=== PATIENT | male | born 1960 | race Caucasian/White ===

== ENCOUNTER → 2019-12-09 13:00 | Outpatient (BNVA) | payer MEDICARE, MEDICAID, SELFPAY | PROVIDERS: Family Provider Nurse Practitioner; PCP Nurse Practitioner; Visit Provider Internal Medicine Cardiovascular Disease | DX: I10 Essential (primary) hypertension (principal); M79.89 Other specified soft tissue disorders; E78.5 Hyperlipidemia, unspecified; J44.9 Chronic obstructive pulmonary disease, unspecified; I25.10 Atherosclerotic heart disease of native coronary artery without angina pectoris | CPT/HCPCS: 80048; 80076; 83880 ==

== ENCOUNTER 2022-05-31 12:46 | Outpatient (CLI) | payer MEDICARE, MEDICAID, SELFPAY ==
--- NOTE | 2022-05-31 12:52 | CT_ITS ---
WS: [id number] LDCT LUNG CANCER SCREENING TECHNIQUE: Noncontrast CT of the chest with coronal and sagittal reformatted images. CLINICAL INFORMATION: NICOTINE DEPENDENCE,CIGARETTES COMPARISON: None. DLP: 80.79 mGy.cm DIvol: Mean CTDIvol: 1.60 (mGy) All CT scans at [facility] use at least one of these dose optimization techniques: automat ed exposure control; mA and/or kV adjustment per patient size (includes targeted exams where dose is matched to clinical indication); or iterative reconstruction. FINDINGS: Aortic calcification. Postoperative changes ACDF C6-C7. Mild aortic calcification. Mild cor onary calcification. No mediastinal or hilar lymphadenopathy. Calcified RIGHT hilar lymph nodes. No a xillary lymphadenopathy. Small esophageal hiatal hernia. Adrenal glands are normal. Normal noncontrast spleen. Small hazy opac ity RIGHT upper lobe measuring 4 mm. Hypertrophic changes thoracic spine with prominent protruding disc osteophyte complex at T8-T9 with i mpingement on the LEFT subarticular recess and mild to moderate central canal stenosis. Severe LEFT p roximal foraminal narrowing. This is unchanged from the prior lumbar spine MRI in 2018 CT/CT lung screening [id number] IMPRESSION: LUNG-RADS: 1-Negative FOLLOW UP: 12 Month: Continue annual screening with LDCT
== END 2022-05-31 12:47 | disposition home or self-care (01) ==
PROVIDERS: PCP Nurse Practitioner Family; Visit Provider Nurse Practitioner Family
DX: Z12.2 Encounter for screening for malignant neoplasm of respiratory organs (principal); F17.210 Nicotine dependence, cigarettes, uncomplicated
CPT/HCPCS: 71271

== ENCOUNTER 2022-11-08 15:26 | Inpatient (IN) | payer MEDICARE, MEDICAID, SELFPAY ==
[2022-11-08] VITALS (10 sets, daily range): BP systolic 130–150; BP diastolic 74–88; PULSE 104–120; RESP 18–40; TEMP 36.9–37.2; O2SAT 90–96; BMI 41.1
--- NOTE | 2022-11-08 15:32 | XR_ITS ---
WS: [id number] Exam: XR chest 1V portable [id number] Date/Time of Exam: 11/08/2022 3:38 PM Reason For Exam: dyspnea/cough Comparison 04/04/2019. There is infiltrate along the left heart border probably in the lingular segment of the left upper lo be. The right lung is clear. The lungs are fully inflated. No pleural effusions. Cardiomediastinal si lhouette is unremarkable. Fusion hardware in the lower C-spine. XR/XR chest 1V portable [id number] IMPRESSION: 1. Infiltrate along the left heart border suspicious for pneumonia. This is pro bably within the lingula.
[2022-11-08] MEDS: ipratropium-albuterol 3 mL Neb INHALATION ×2 (15:45→19:57)
[2022-11-08 16:29] LABS: Basophils % 0.3 %; Eosinophils % 0.1 %; Hematocrit 54.8 % (42.0-52.0); Hemoglobin 17.6 g/dL (11.7-16.6); Lymphocytes # 1.6 10^3/uL (0.8-4.8); Lymphocytes % 18.4 %; Mean Corpuscular HGB Conc 32.1 g/dL (30.0-36.0); Mean Corpuscular Hemoglobin 29.1 pg (28.0-34.0); Mean Corpuscular Volume 90.6 fl (80-94); Mean Platelet Volume 9.5 fL (7.4-10.4); Monocytes # 0.8 10^3/uL (0.2-0.9); Monocytes % 8.6 %; Nucleated Red Blood Cells % 0 %; Platelet Count 166 10^3/cmm (130-400); Red Blood Count 6.05 10^6/uL (4.1-5.3); Red Cell Distribution Width 15.2 % (12.1-15.1); White Blood Count 8.8 10^3/uL (4.0-10.0)
--- NOTE | 2022-11-08 16:57 | ED_ITS ---
HPI - SOB/Dyspnea General: Chief Complaint: Shortness of Breath/Dyspnea Stated Complaint: SOB Time Seen by Provider: 11/08/22 15:29 Source: patient Mode of arrival: ambulatory History of Present Illness: HPI Narrative: 62-year-old male presents emergency room with complaint of shortness of breath. He is normally on oxygen at home he has felt more short of breath last few days was little bit tachycardic as well. Has had a productive cough over the last 3 to 4 days. He has a history of COPD does continue to smoke. MD elicited complaint: shortness of breath and cough Pertinent past history: COPD Onset (ago): day(s) (4) Timing: constant Severity: mild Exacerbating factors: coughing Relieving factors: oxygen, rest and bronchodilators Known history of: COPD Associated symptoms: Reports chest congestion and cough; Deny abdominal pain, chest pain, diaphoresis, dizziness, extremity pain, fever(s), hemoptysis, lightheadedness, myalgias, nausea, orthopnea, palpitations, paresthesias, polydipsia, polyuria, rash, sense of impending doom, syncope or vomiting Treatment prior to arrival: oxygen Review of Systems Const: Denies: fever(s), chills, fatigue, malaise or diaphoresis ENMT: Denies: throat pain, ear or mastoid pain, nasal discharge or nasal congestion Card: Denies: chest pain, palpitations, lightheadedness, syncope or orthopnea Resp: Reports: dyspnea, productive cough and chest congestion; Denies: hemoptysis GI: Denies: abdominal pain, nausea or vomiting : Denies: flank pain, dysuria, urinary frequency or urinary urgency Musc: Denies: extremity pain Skin/Breast: Denies: rash or pruritus Neuro: Denies: dizziness Endo: Denies: polyuria or polydipsia PFSH ED PFSH: Medical History ASHD (arteriosclerotic heart disease) Bradycardia COPD (chronic obstructive pulmonary disease) Dyslipidemia (high LDL; low HDL) Essential hypertension GERD (gastroesophageal reflux disease) Heart murmur History of left heart catheterization Leg swelling Non-ST elevation (NSTEMI) myocardial infarction Sleep apnea Tobacco dependence Surgical History Hx of knee surgery Hx of neck surgery Hx of repair of left rotator cuff Family History Sister Diabetes Grandfather Diabetes Father Hypertension Cancer Mother Hypertension Sister Hypertension Brother Hypertension CAD (coronary artery disease) Social History Smoking and tobacco status: current some day smoker Alcohol intake: never Marital status: Current occupational status: employed Physical Exam Const: GENERAL APPEARANCE: cooperative and comfortable ORIENTATION/CONSCIOUSNESS: Yes awake, Yes oriented to person, Yes oriented to place and Yes oriented to time HENMT: COMMON NORMALS: normocephalic, atraumatic and hearing grossly normal bilaterally HEAD & SCALP: normocephalic and atraumatic Resp: COMMON NORMALS: normal respiratory effort, No retractions and No use of accessory muscles AUSCULTATION: rhonchi and wheezes Cardio: COMMON NORMALS: regular rhythm and No murmurs present (Cardio) RATE: tachycardic RHYTHM: regular rhythm GI: COMMON NORMALS: Soft to palpation and No hepatosplenomegaly present AUSCULTATION: Yes normoactive bowel sounds PALPATION: Yes Soft to palpation, No Tenderness to palpation present (GI), No Guarding due to palpation present (GI) and Yes No hepatosplenomegaly present Extremity: COMMON NORMALS: normal to inspection, capillary refill normal, no clubbing, cyanosis or edema, no calf tenderness and no pedal edema Neuro: SENSORIUM/ORIENTATION: Yes oriented to person, Yes oriented to place and Yes oriented to time Skin: COMMON NORMALS: no rashes or lesions noted GENERAL SKIN EXAM: no rashes or lesions noted Course 2 Vital Signs: Vital signs: Vital Signs Temperature 98.4 F 11/08/22 15:28 Pulse Rate 110 H 11/08/22 16:30 Respiratory Rate 22 H 11/08/22 16:30 Blood Pressure 150/87 11/08/22 16:30 Pulse Oximetry 90 11/08/22 16:30 Oxygen Delivery Me thod 11/08/22 16:30 Oxygen Flow Rate 4 11/08/22 16:30 MDM - SOB/Dyspnea Medical Decision Making Left lower lobe pneumonia with increased oxygen needs. His flu and COVID are negative will admit to hospital IV fluids antibiotics aggressive pulmonary toilet discussed Dr. Cho orders written Medical Records I reviewed the patient's medical records. Lab Data I reviewed the patient's lab results. 11/08/22 16:03 11/08/22 16:03 Labs/Radiology: Radiology Impressions Chest X-Ray 11/08/22 15:32 IMPRESSION: 1. Infiltrate along the left heart border suspicious for pneumonia. This is probably within the lingula. Laboratory Results WBC 8.8 10^3/uL (4.0-10.0) 11/08/22 16:03 RBC 6.05 10^6/uL (4.1-5.3) H 11/08/22 16:03 Hgb 17.6 g/dL (11.7-16.6) H 11/08/22 16:03 Hct 54.8 % (42.0-52.0) H 11/08/22 16:03 MCV 90.6 fl (80-94) 11/08/22 16:03 MCH 29.1 pg (28.0-34.0) 11/08/22 16:03 MCHC 32.1 g/dL (30.0-36.0) 11/08/22 16:03 RDW 15.2 % (12.1-15.1) H 11/08/22 16:03 Plt Count 166 10^3/cmm (130-400) 11/08/22 16:03 MPV 9.5 fL (7.4-10.4) 11/08/22 16:03 Neut % (Auto) 72.0 % 11/08/22 16:03 Lymph % (Auto) 18.4 % 11/08/22 16:03 [place] % (Auto) 8.6 % 11/08/22 16:03 Eos % (Auto) 0.1 % 11/08/22 16:03 Baso % (Auto) 0.3 % 11/08/22 16:03 Neut # (Auto) 6.30 10^3/uL (1.8-7.7) 11/08/22 16:03 Lymph # (Auto) 1.6 10^3/uL (0.8-4.8) 11/08/22 16:03 [place] # (Auto) 0.8 10^3/uL (0.2-0.9) 11/08/22 16:03 Eos # (Auto) 0.0 10^3/uL (0.0-0.8) 11/08/22 16:03 Baso # (Auto) 0.0 10^3/uL (0.0-0.1) 11/08/22 16:03 Nucleated RBC % (auto) 0 % 11/08/22 16:03 Nucleated RBCs # 0.0 /100WBC 11/08/22 16:03 Sodium 135 mmol/L (136-145) L 11/08/22 16:03 Potassium 4.4 mmol/L (3.5-5.1) 11/08/22 16:03 Chloride 98 mmol/L (98-107) 11/08/22 16:03 Carbon Dioxide 29 mmol/L (22-29) 11/08/22 16:03 Anion Gap 12.4 (5-19) 11/08/22 16:03 BUN 19 mg/dL (8-23) 11/08/22 16:03 Creatinine 1.4 mg/dL (0.7-1.2) H 11/08/22 16:03 GFR Calculation 51.4 mL/min (90-130) L 11/08/22 16:03 Glucose 109 mg/dL (65-115) 11/08/22 16:03 Calculated Osmolality 283 mOsm/kg (285-295) L 11/08/22 16:03 Calcium 9.5 mg/dL (8.5-10.5) 11/08/22 16:03 Total Bilirubin 0.6 mg/dL (0.15-1.2) 11/08/22 16:03 AST 35 U/L (0-40) 11/08/22 16:03 ALT 33 U/L (0-41) 11/08/22 16:03 Alkaline Phosphatase 61 U/L (40-130) 11/08/22 16:03 Total Protein 8.2 g/dL (6.6-8.7) 11/08/22 16:03 Albumin 4.2 g/dL (3.5-5.2) 11/08/22 16:03 Globulin 4.0 g/dL (1.3-4.6) 11/08/22 16:03 Nasal Influ A H1 2008 PCR Not detected (NOT DETECT) 11/08/22 15:43 Coronavirus 229E (PCR) Not detected (NOT DETECT) 11/08/22 15:43 Influenza A (H1) PCR Not detected (NOT DETECT) 11/08/22 15:43 Influenza A (H3) PCR Not detected (NOT DETECT) 11/08/22 15:43 Influenza Type A Ag negative (Negative) 11/08/22 16:20 Influenza Type A (PCR) Not detected (NOT DETECT) 11/08/22 15:43 Influenza Type B Ag negative (Negative) 11/08/22 16:20 Influenza Type B (PCR) Not detected (NOT DETECT) 11/08/22 15:43 RSV Type A (PCR) Detected (NOT DETECT) A 11/08/22 18:03 RSV Type B (PCR) Not detected (NOT DETECT) 11/08/22 18:03 SARS-CoV-2 (PCR) Not detected (NOT DETECT) 11/08/22 15:43 SARS-CoV-2 Ag (Rapid) negative (Negative) 11/08/22 16:20 Discharge Plan Discharge Patient Disposition: Placed in Observation Clinical Impression: Pneumonia, Acute exacerbation of chronic obstructive airways disease Coding Level of Care Code 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
[2022-11-08 17:04] LABS: Alanine Aminotransferase 33 U/L (0-41); Albumin Level 4.2 g/dL (3.5-5.2); Alkaline Phosphatase 61 U/L (40-130); Anion Gap 12.4 (5-19); Aspartate Amino Transferase 35 U/L (0-40); Blood Urea Nitrogen 19 mg/dL (8-23); Calcium 9.5 mg/dL (8.5-10.5); Carbon Dioxide 29 mmol/L (22-29); Chloride 98 mmol/L (98-107); Glomerular Filtration Rate 51.4 mL/min (90-130); Glucose 109 mg/dL (65-115); Osmolality Calculated 283 mOsm/kg (285-295); Potassium 4.4 mmol/L (3.5-5.1); Sodium 135 mmol/L (136-145); Total Bilirubin 0.6 mg/dL (0.15-1.2); Total Protein 8.2 g/dL (6.6-8.7)
[2022-11-08 17:35] LABS: SARS Covid-2 Antigen negative (Negative)
[2022-11-08 17:36] LABS: Influenza A by IFA negative (Negative); Influenza B by IFA negative (Negative)
[2022-11-08 17:47] LABS: Adenovirus Not Detected (NOT DETECT); Chlamydia Pneumoniae Not Detected (NOT DETECT); Coronavirus 229E,HKU1,NL63,OC4 Not Detected (NOT DETECT); Human Metapneumovirus Not Detected (NOT DETECT); Human Rhinovirus/Enterovirus Not Detected (NOT DETECT); Influenza A Not Detected (NOT DETECT); Influenza A H1 Not Detected (NOT DETECT); Influenza A H1-2009 Not Detected (NOT DETECT); Influenza A H3 Not Detected (NOT DETECT); Influenza B Not Detected (NOT DETECT); Mycoplasma Pneumoniae Not Detected (NOT DETECT); Parainfluenza Virus Type 1 Not Detected (NOT DETECT); Parainfluenza Virus Type 2 Not Detected (NOT DETECT); Parainfluenza Virus Type 3 Not Detected (NOT DETECT); Parainfluenza Virus Type 4 Not Detected (NOT DETECT); Respiratory Syncytial Virus A Detected (NOT DETECT); Respiratory Syncytial Virus B Not Detected (NOT DETECT); SARS-COV-2 Not Detected (NOT DETECT)
[2022-11-08 18:04] LABS: Results from GEN
[2022-11-08 18:04] LABS: Respiratory Syncytial Virus A Detected (NOT DETECT); Respiratory Syncytial Virus B Not Detected (NOT DETECT); Results from GEN
[2022-11-08] MEDS: levofloxacin-dextrose 5 % 750 MG/150 ML PREMIX 100 MG IV (18:05)
--- NOTE | 2022-11-08 18:25 | P.HP_ITS ---
Providers/Chief Complaint Primary Care Provider: Kristan Martin NP Chief Complaint: SOB History of Present Illness Jose Adair is a 62 year old male with PMH of HTN, CAD ,COPD on 2Ls home oxygen came in today with C/O worsening SOB, generalized body pain,chills,cough with productive whitish sputum started this monday and since then it has worsened,he denied any chest pain, headache, nausea,vomiting,abdominal pain. Xray chest done in the ER has shown : Infiltrate along the left heart border. Pertinent labs: WBC: 8.8 H&H : 17/54 , PLT : 166 , Na: 135 , k: 4.4 BUN/SCR : 19/1.4 , RSV Type A : Positive. Review of Systems General: Reports: 10 or more systems reviewed and unremarkable except in HPI and below Const: Denies: fever(s), chills, body aches, change in appetite or diaphoresis Card: Reports: swelling of feet/ankles; Denies: palpitations, edema, orthopnea or leg pain with exertion Resp: Reports: dyspnea, productive cough, wheezing and pain on inspiration GI: Denies: abdominal pain, nausea, vomiting, diarrhea or constipation : Denies: flank pain or difficulty urinating Musc: Reports: back pain; Denies: extremity pain or extremity swelling Neuro: Denies: headache(s), difficulty walking or confusion Medications/Allergies Home Medications Medication Instructions Recorded Confirmed Last Taken Type albuterol sulfate 2.5 mg/3 mL 2.5 mg inhalation Q6H 12/09/19 11/08/22 Unknown History (0.083 %) solution for nebulization aspirin 325 mg tablet 325 mg PO QDAY 12/09/19 11/08/22 Unknown History clopidogrel 75 mg tablet 75 mg PO QDAY 12/09/19 11/08/22 Unknown History esomeprazole magnesium 20 mg 20 mg PO QDAY 12/09/19 11/08/22 Unknown History capsule,delayed release (Nexium 24HR) fluticasone furoate 100 1 inh inhalation Q24H 12/09/19 11/08/22 Unknown History mcg/actuation blister powder for inhalation lisinopril 20 mg tablet 20 mg PO BID 12/09/19 11/08/22 Unknown History loratadine 10 mg capsule 10 mg PO QDAY 12/09/19 11/08/22 Unknown History metoprolol tartrate 25 mg tablet 12.5 mg PO DAILY 12/09/19 11/08/22 Unknown History nitroglycerin 0.4 mg sublingual 0.4 mg sublingual Q5M PRN Chest 12/09/19 11/08/22 Unknown History tablet (Nitrostat) Pain rosuvastatin 10 mg tablet (Crestor) 10 mg PO QDAY 12/09/19 11/08/22 Unknown History furosemide 40 mg tablet 40 mg PO DAILY #30 tabs 12/25/19 11/08/22 Unknown Rx potassium chloride 10 mEq 10 meq PO DAILY #90 tabs 07/17/20 11/08/22 Unknown Rx tablet,extended release albuterol sulfate 90 mcg/actuation 2 puff inhalation Q4H PRN 11/08/22 11/08/22 Unknown History aerosol inhaler Shortness Of Breath Or Wheezing ibuprofen 200 mg tablet (Advil) 400 mg PO Q6H PRN Pain 11/08/22 11/08/22 Unknown History Allergies Allergy/AdvReac Type Severity Reaction Status Date / Time acetaminophen [From [place]] Allergy UNKNOWN Verified 11/08/22 16:03 diphenhydramine Allergy UNKNOWN Verified 11/08/22 16:03 [From Benadryl] hydrocodone [From [place]] Allergy UNKNOWN Verified 11/08/22 16:03 PFSH Acute PFSH: Medical History ASHD (arteriosclerotic heart disease) Bradycardia COPD (chronic obstructive pulmonary disease) Dyslipidemia (high LDL; low HDL) Essential hypertension GERD (gastroesophageal reflux disease) Heart murmur History of left heart catheterization Leg swelling Non-ST elevation (NSTEMI) myocardial infarction Sleep apnea Tobacco dependence Surgical History Hx of knee surgery Hx of neck surgery Hx of repair of left rotator cuff Family History Sister Diabetes Grandfather Diabetes Father Hypertension Cancer Mother Hypertension Sister Hypertension Brother Hypertension CAD (coronary artery disease) Social History Smoking and tobacco status: current some day smoker Alcohol intake: never Marital status: Current occupational status: employed Vitals/I&O/Wt Last Vital Signs Temp 98.4 F 11/08/22 15:28 Pulse 114 H 11/08/22 18:00 Resp 22 H 11/08/22 16:30 BP 150/87 11/08/22 16:30 Pulse Ox 90 11/08/22 18:00 O2 Del Method 11/08/22 18:00 O2 Flow Rate 4 11/08/22 18:00 Weight last 48 hrs Weight 115.666 kg Physical Exam Const: COMMON NORMALS: patient oriented x3 HENMT: COMMON NORMALS: normocephalic and atraumatic HEAD & SCALP: normocephalic and atraumatic Resp: AUSCULTATION: clear to auscultation bilaterally OTHER: B/L Rochii as well as expiratory wheezing in both lungs demarco, diminished air entry B/L. Cardio: COMMON NORMALS: regular rate, regular rhythm, S1 normal heart sound present, S2 normal heart sound present, No gallops present (Cardio), No murmurs present (Cardio), No rub (Cardio) and Peripheral pulses 2+ throughout RATE: regular rate RHYTHM: regular rhythm HEART SOUNDS: S1 normal heart sound present and S2 normal heart sound present PERIPHERAL PULSES: Peripheral pulses 2+ throughout GI: COMMON NORMALS: Normal to inspection, nondistended, normoactive bowel sounds present, Soft to palpation, non-tender, No hepatosplenomegaly present and no masses AUSCULTATION: Yes normoactive bowel sounds PALPATION: Yes Soft to palpation and Yes No hepatosplenomegaly present RECTAL EXAM: Yes deferred Extremity: COMMON NORMALS: no clubbing, cyanosis or edema and no pedal edema Data 11/08/22 16:03 11/08/22 16:03 Micro: Microbiology 11/08/22 16:14 Blood Culture - Preliminary Blood SPECIMEN COLLECTED 11/08/22 16:03 Blood Culture - Preliminary Blood SPECIMEN COLLECTED A&P Assessment and plan (1) Pneumonia: (2) Acute exacerbation of chronic obstructive airways disease: (3) Coronary artery disease: Qualifiers: Associated angina: without angina Coronary Disease-Associated Artery/Lesion type: [place] artery [place] vs. transplanted heart: [place] heart Qualified Code(s): I25.10 - Atherosclerotic heart disease of [place] coronary artery without angina pectoris (4) Dyslipidemia (high LDL; low HDL): (5) ALISIA (acute kidney injury): Plan 62 year old male with PMH of HTN, CAD ,COPD on 2Ls home oxygen came in today with C/O worsening SOB, generalized body pain,chills,cough with productive whitish sputum started this monday and since then it has worsened,he denied any chest pain, headache, nausea,vomiting,abdominal pain. Assessment : Pneumonia ( CAP ) Acute COPD Exacerbation 2/2 to PNA ALISIA ON CKD HTN H/O CAD PLan : Sputum Gram stain and culture Urine legionella antigen Bacterial antigen panel Blood Culture Currently on ceftriaxone as well as Azithromycin Solumedrol I.V Duo nebs Anti tussives Gentle I,V Hydration, monitor inatke/output,avoid nephrotoxics. Code :Full code DVT PPX: On lovenox Attestations Medical Necessity Statement*: Patient needs to be in hospital for the management of PNA. 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 transplanted heart: [place] heart Dyslipidemia (high LDL; low HDL) E78.5 ALISIA (acute kidney injury) N17.9
[2022-11-08] MEDS: guaiFENesin-dextromethorphan UDC 10 mL 5 ML PO (18:50)
[2022-11-08] MEDS: enoxaparin 40 mg/0.4 mL Syringe SUBCUT (18:50)
[2022-11-08] MEDS: sodium chloride 0.9% 1,000 ML 75 ML IV (19:29)
[2022-11-09] VITALS (14 sets, daily range): BP systolic 105–119; BP diastolic 62–70; PULSE 71–103; RESP 16–25; TEMP 36.4–36.9; O2SAT 92–98
[2022-11-09] MEDS: ipratropium-albuterol 3 mL Neb INHALATION ×4 (02:30→20:24)
[2022-11-09 03:32] LABS: Hematocrit 51.4 % (42.0-52.0); Hemoglobin 16.4 g/dL (11.7-16.6); Lymphocytes # 0.8 10^3/uL (0.8-4.8); Lymphocytes % 17.3 %; Mean Corpuscular HGB Conc 31.9 g/dL (30.0-36.0); Mean Corpuscular Hemoglobin 29.2 pg (28.0-34.0); Mean Corpuscular Volume 91.5 fl (80-94); Mean Platelet Volume 9.9 fL (7.4-10.4); Monocytes # 0.1 10^3/uL (0.2-0.9); Monocytes % 2.4 %; Neutrophils # 3.69 10^3/uL (1.8-7.7); Neutrophils % 79.9 %; Nucleated Red Blood Cells % 0 %; Platelet Count 158 10^3/cmm (130-400); Red Blood Count 5.62 10^6/uL (4.1-5.3); Red Cell Distribution Width 15.1 % (12.1-15.1); White Blood Count 4.6 10^3/uL (4.0-10.0)
[2022-11-09 04:00] LABS: Blood Urea Nitrogen 21 mg/dL (8-23); Calcium 9.2 mg/dL (8.5-10.5); Carbon Dioxide 27 mmol/L (22-29); Chloride 100 mmol/L (98-107); Glomerular Filtration Rate 55.9 mL/min (90-130); Glucose 154 mg/dL (65-115); Osmolality Calculated 286 mOsm/kg (285-295); Sodium 135 mmol/L (136-145)
[2022-11-09 04:01] LABS: Anion Gap 12.9 (5-19)
[2022-11-09 04:04] LABS: Potassium 4.9 mmol/L (3.5-5.1)
[2022-11-09 04:08] LABS: Procalcitonin 0.07 ng/mL (0-0.5)
[2022-11-09] MEDS: azithromycin 500 MG in sodium chloride 0.9% 250 ML 250 MG IV (05:14)
[2022-11-09] MEDS: acetaminophen 325 mg Tablet 650 MG PO (08:32)
[2022-11-09] MEDS: cefTRIAXone 1,000 MG in sodium chloride 0.9% (plus) 50 ML 100 MG IV (08:33)
[2022-11-09] MEDS: sodium chloride 0.9% 1,000 ML 75 ML IV (08:33)
[2022-11-09 09:37] LABS: D Dimer 0.65 ug/mIFEU (0-0.59)
--- NOTE | 2022-11-09 12:52 | PC.CHAP ---
Pastoral Care Encounter/Spiritual Assessment Type of Contact [] Declined library science professor visit [] Patient/Family/Request visit [] Outpatient visit [] Follow-up visit [] Physician referral [] Code/Alert [x] Routine visit [] Staff referral [] Actively dying [] Patient sleeping [] Family support [] [] Out of room [] Palliative care [] [] Receiving care in room [] Pre-surgical visit [] Trauma [] Long length of stay [] ICU visit [x] Other:isolation Relational/Emotional Strength [] Patient feels connected with others/family/visitors/staff [] Distress [] Loneliness/isolation [] Abandonment Spirituality of Patient [] Person of Atiya [] Attends Latter Day of their Atiya [] Believes in Prayer [] Reads Bible or Gnosticist materials [] There are Spiritual issues to be addressed [employer] Technician Interventions [] Prayer [] Active listening [] Non-anxious presence [] Spiritual/emotional support [] Crisis/trauma care [] Spiritual counseling [] Bereavement support [] Provided bereavement packet [] Provided Bible/devotional materials [] Provided toy/stuffed animal, coloring book to patient or family member [] Provided Communion [] Anointing/[place] [] Salvation [] Completed spiritual assessment [] Other: Impact on Illness or Injury [] Angry [] Fearful [] Anxious [] Often cries [] Exhaustion [] Unable to work [] Unable to attend islam [] Unable to walk/stand [] Unable to read [] Unable to drive [] Unable to eat/drink [] Unable to sleep [] Unable to be with family [] Patient intubated [] Other: Summary Time spent with patient
--- NOTE | 2022-11-09 15:51 | PM.PN ---
Subjective Subjective: Patient was seen and examined this morning, shortness of breath has slightly improved, though he still has significant coughing, currently requiring 6 L oxygen through nasal cannula, he is still pretty short of breath. Medications: Medication Review Details: Generic Name Dose Route Start Last Admin Trade Name Freq PRN Reason Stop Dose Admin Acetaminophen 650 mg 11/08/22 18:17 11/09/22 08:32 Acetaminophen 32 5 Mg Tablet PO 650 mg Q6H PRN Administration Mild/Mod Pain Or Temp >/= 101 Albuterol/Ipratrop ium 3 ml 11/08/22 20:00 11/09/22 13:26 Ipratropium-Albu terol 3 Ml Neb INHALATION 3 ml Q6H.RESP MISHEL Administration Enoxaparin Sodium 40 mg 11/08/22 19:00 11/08/22 18:50 Enoxaparin 40 Mg /0.4 Ml Syringe SUBCUT 40 mg Q24H MISHEL Administration Sodium Chloride 1,000 mls @ 75 ml s/hr 11/08/22 18:30 11/09/22 08:33 Sodium Chloride 0.9% IV 75 mls/hr .[id number] MISHEL Administration Ceftriaxone Sodium 1,000 mg/ 50 mls @ 100 mls/ hr 11/09/22 08:00 11/09/22 10:09 Sodium Chloride IV Infused Q24H MISHEL Infusion Protocol Azithromycin 500 m g/ Sodium 250 mls @ 250 mls /hr 11/09/22 07:00 11/09/22 05:29 Chloride IV Infused Q24H MISHEL Infusion Protocol Methylprednisolone Sodium Succinate 40 mg 11/09/22 14:00 11/09/22 14:29 Methylprednisolo ne Sod Succ 40 Mg/ Ml Inj IVP 40 mg Q6H MISHEL Administration Vitals/I&O/Wt Last Vital Signs Temp 97.8 F 11/09/22 15:18 Pulse 91 11/09/22 15:18 Resp 18 11/09/22 15:18 BP 119/62 11/09/22 15:18 Pulse Ox 97 11/09/22 15:18 O2 Del Method 11/09/22 15:18 O2 Flow Rate 6 11/09/22 15:18 11/09/22 11/09/22 11/09/22 06:59 14:59 22:59 Intake Total 250 / 640 1750 / 1750 Output Total 550 / 550 Balance -300 / 90 1750 / 1750 Weight last 48 hrs Weight 115.666 kg Physical Exam Const: COMMON NORMALS: patient oriented x3 HENMT: COMMON NORMALS: normocephalic and atraumatic HEAD & SCALP: normocephalic and atraumatic Resp: COMMON NORMALS: clear to auscultation bilaterally AUSCULTATION: clear to auscultation bilaterally OTHER: B/L Rochii as well as expiratory wheezing in both lungs demarco, diminished air entry B/L. Cardio: COMMON NORMALS: regular rate, regular rhythm, S1 normal heart sound present, S2 normal heart sound present, No gallops present (Cardio), No murmurs present (Cardio), No rub (Cardio) and Peripheral pulses 2+ throughout RATE: regular rate RHYTHM: regular rhythm HEART SOUNDS: S1 normal heart sound present and S2 normal heart sound present PERIPHERAL PULSES: Peripheral pulses 2+ throughout GI: COMMON NORMALS: Normal to inspection, nondistended, normoactive bowel sounds present, Soft to palpation, non-tender, No hepatosplenomegaly present and no masses AUSCULTATION: Yes normoactive bowel sounds PALPATION: Yes Soft to palpation and Yes No hepatosplenomegaly present RECTAL EXAM: Yes deferred Extremity: COMMON NORMALS: no clubbing, cyanosis or edema and no pedal edema Neuro: COMMON NORMALS: patient oriented x3 Data 11/09/22 02:46 11/09/22 02:46 Micro: Microbiology 11/09/22 02:12 Legionella Urinary Antigen - Final Urine,Voided Bacterial Antigens - Final 11/09/22 01:14 Gram Stain - Final Sputum - Expectorated Sputum 11/08/22 16:14 Blood Culture - Preliminary Blood SPECIMEN COLLECTED 11/08/22 16:03 Blood Culture - Preliminary Blood SPECIMEN COLLECTED A&P Assessment and plan (1) Pneumonia: (2) Acute exacerbation of chronic obstructive airways disease: (3) Coronary artery disease: Qualifiers: Associated angina: without angina Coronary Disease-Associated Artery/Lesion type: [place] artery [place] vs. transplanted heart: [place] heart Qualified Code(s): I25.10 - Atherosclerotic heart disease of [place] coronary artery without angina pectoris (4) Dyslipidemia (high LDL; low HDL): (5) ALISIA (acute kidney injury): Plan 62 year old male with PMH of HTN, CAD ,COPD on 2Ls home oxygen came in today with C/O worsening SOB, generalized body pain,chills,cough with productive whitish sputum started this monday and since then it has worsened,he denied any chest pain, headache, nausea,vomiting,abdominal pain. Assessment : Pneumonia ( CAP ) Acute COPD Exacerbation 2/2 to PNA ALISIA ON CKD HTN H/O CAD PLan : D-dimer: 0.65 Sputum Gram stain and culture: Few Gram-positive cocci in pairs, few gram-negative rods Urine legionella antigen : Negative Bacterial antigen panel: Negative Blood Culture :NTD Currently on ceftriaxone as well as Azithromycin Solumedrol I.V Duo nebs Anti tussives Gentle I,V Hydration, monitor inatke/output,avoid nephrotoxics. Code :Full code DVT PPX: On lovenox Attestations Medical Necessity Statement*: Patient is in hospital for management of pneumonia Time Spent in Patient Care: Greater than 35 minutes (>than 50% of time spent in counselling and/or direct pt care on unit). Coding Level of Care Code Acute Shank Archer for [facility] Fwd Exam Detailed Diagnoses Pneumonia J18.9 Acute exacerbation of chronic obstructive airways disease J44.1 Coronary artery disease I25.10 Associated angina: without angina Coronary Disease-Associated Artery/Lesion type: [place] artery [place] vs. transplanted heart: [place] heart Dyslipidemia (high LDL; low HDL) E78.5 ALISIA (acute kidney injury) N17.9
[2022-11-09] MEDS: enoxaparin 40 mg/0.4 mL Syringe SUBCUT (17:54)
[2022-11-09] MEDS: guaiFENesin 600 mg Tablet PO (17:54)
[2022-11-09] MEDS: acetylcysteine 200 mg/mL SDV 4 mL 100 MG INHALATION (20:24)
[2022-11-10] VITALS (14 sets, daily range): BP systolic 112–152; BP diastolic 65–88; PULSE 77–107; RESP 14–23; TEMP 36.5–36.7; O2SAT 92–100
[2022-11-10 02:03] LABS: Basophils % 0.1 %; Hemoglobin 15.1 g/dL (11.7-16.6); Lymphocytes # 1.1 10^3/uL (0.8-4.8); Lymphocytes % 9.3 %; Mean Corpuscular HGB Conc 30.8 g/dL (30.0-36.0); Mean Platelet Volume 10.1 fL (7.4-10.4); Monocytes # 0.6 10^3/uL (0.2-0.9); Monocytes % 5.1 %; Neutrophils # 9.95 10^3/uL (1.8-7.7); Neutrophils % 85.2 %; Nucleated Red Blood Cells % 0 %; Platelet Count 163 10^3/cmm (130-400); Red Blood Count 5.21 10^6/uL (4.1-5.3); White Blood Count 11.7 10^3/uL (4.0-10.0)
[2022-11-10 02:28] LABS: Anion Gap 13.1 (5-19); Blood Urea Nitrogen 26 mg/dL (8-23); Carbon Dioxide 29 mmol/L (22-29); Chloride 99 mmol/L (98-107); Glomerular Filtration Rate 55.9 mL/min (90-130); Glucose 182 mg/dL (65-115); Osmolality Calculated 291 mOsm/kg (285-295); Potassium 5.1 mmol/L (3.5-5.1); Sodium 136 mmol/L (136-145)
[2022-11-10] MEDS: ipratropium-albuterol 3 mL Neb INHALATION ×4 (02:38→20:31)
[2022-11-10] MEDS: acetylcysteine 200 mg/mL SDV 4 mL 100 MG INHALATION ×4 (02:38→20:31)
--- NOTE | 2022-11-10 06:00 | XRR_ITS ---
PROCEDURE INFORMATION: Exam: XR Chest Exam date and time: 11/10/2022 6:14 AM Age: 62 years old Clinical indication: Shortness of breath; Additional info: Pneumonia TECHNIQUE: Imaging protocol: Radiologic exam of the chest. Views: 1 view. COMPARISON: CR XR chest 1V portable [id number] 11/08/2022 3:40 PM FINDINGS: Lungs: There is increased interstitial markings and haziness of the lungs, which in the setting of cardiomegaly is consistent with pulmonary congestion. Pneumonia should be excluded clinically. Pleural spaces: Unremarkable. No pleural effusion. No pneumothorax. Heart/Mediastinum: Stable cardiomediastinal silhouette. Bones/joints: Cervical spine fusion hardware noted. XR/XR chest 1V portable [id number] IMPRESSION: Imaging findings of pulmonary congestion. Pneumonia should be excluded clinically.
[2022-11-10] MEDS: azithromycin 500 MG in sodium chloride 0.9% 250 ML 250 MG IV (06:06)
[2022-11-10] MEDS: cefTRIAXone 1,000 MG in sodium chloride 0.9% (plus) 50 ML 100 MG IV (08:48)
[2022-11-10] MEDS: guaiFENesin 600 mg Tablet PO ×2 (08:49→17:05)
--- NOTE | 2022-11-10 14:53 | PM.PN ---
Subjective Subjective: Patient was seen and examined this morning, shortness of breath and coughing is improving. Good urine output. afebrile. Medications: Medication Review Details: Generic Name Dose Route Start Last Admin Trade Name Freq PRN Reason Stop Dose Admin Acetaminophen 650 mg 11/08/22 18:17 11/09/22 08:32 Acetaminophen 32 5 Mg Tablet PO 650 mg Q6H PRN Administration Mild/Mod Pain Or Temp >/= 101 Acetylcysteine 100 mg 11/09/22 20:00 11/10/22 14:18 Acetylcysteine 2 00 Mg/Ml Sdv 4 Ml INHALATION 100 mg Q6H.RESP MISHEL Administration Albuterol/Ipratrop ium 3 ml 11/08/22 20:00 11/10/22 14:17 Ipratropium-Albu terol 3 Ml Neb INHALATION 3 ml Q6H.RESP MISHEL Administration Enoxaparin Sodium 40 mg 11/08/22 19:00 11/09/22 17:54 Enoxaparin 40 Mg /0.4 Ml Syringe SUBCUT 40 mg Q24H MISHEL Administration Guaifenesin 600 mg 11/09/22 18:00 11/10/22 08:49 Guaifenesin 600 Mg Tablet PO 600 mg BID MISHEL Administration Ceftriaxone Sodium 1,000 mg/ 50 mls @ 100 mls/ hr 11/09/22 08:00 11/10/22 09:30 Sodium Chloride IV Infused Q24H MISHEL Infusion Protocol Azithromycin 500 m g/ Sodium 250 mls @ 250 mls /hr 11/09/22 07:00 11/10/22 07:40 Chloride IV Infused Q24H MISHEL Infusion Protocol Methylprednisolone Sodium Succinate 40 mg 11/09/22 14:00 11/10/22 13:19 Methylprednisolo ne Sod Succ 40 Mg/ Ml Inj IVP 40 mg Q6H MISHEL Administration Vitals/I&O/Wt Last Vital Signs Temp 98.0 F 11/10/22 11:49 Pulse 93 11/10/22 14:22 Resp 20 H 11/10/22 14:22 BP 126/73 11/10/22 11:49 Pulse Ox 100 11/10/22 14:22 O2 Del Method 11/10/22 11:49 O2 Flow Rate 6 11/10/22 07:53 FiO2 2 11/10/22 14:22 11/09/22 11/10/22 11/10/22 22:59 06:59 14:59 Intake Total 1989 1720 / 3710 1020 / 1020 Balance 1989 1720 / 3710 1020 / 1020 Weight last 48 hrs Weight 115.666 kg Physical Exam Const: COMMON NORMALS: patient oriented x3 HENMT: COMMON NORMALS: normocephalic and atraumatic HEAD & SCALP: normocephalic and atraumatic Resp: COMMON NORMALS: clear to auscultation bilaterally AUSCULTATION: clear to auscultation bilaterally OTHER: Diminished air entry B/L. Cardio: COMMON NORMALS: regular rate, regular rhythm, S1 normal heart sound present, S2 normal heart sound present, No gallops present (Cardio), No murmurs present (Cardio), No rub (Cardio) and Peripheral pulses 2+ throughout RATE: regular rate RHYTHM: regular rhythm HEART SOUNDS: S1 normal heart sound present and S2 normal heart sound present PERIPHERAL PULSES: Peripheral pulses 2+ throughout GI: COMMON NORMALS: Normal to inspection, nondistended, normoactive bowel sounds present, Soft to palpation, non-tender, No hepatosplenomegaly present and no masses AUSCULTATION: Yes normoactive bowel sounds PALPATION: Yes Soft to palpation and Yes No hepatosplenomegaly present RECTAL EXAM: Yes deferred Extremity: COMMON NORMALS: no clubbing, cyanosis or edema and no pedal edema Neuro: COMMON NORMALS: patient oriented x3 Data 11/10/22 01:19 11/10/22 01:19 Micro: Microbiology 11/08/22 16:14 Blood Culture - Preliminary Blood NEGATIVE TO DATE 11/08/22 16:03 Blood Culture - Preliminary Blood NEGATIVE TO DATE A&P Assessment and plan (1) Pneumonia: (2) Acute exacerbation of chronic obstructive airways disease: (3) Coronary artery disease: Qualifiers: Associated angina: without angina Coronary Disease-Associated Artery/Lesion type: [place] artery [place] vs. transplanted heart: [place] heart Qualified Code(s): I25.10 - Atherosclerotic heart disease of [place] coronary artery without angina pectoris (4) Dyslipidemia (high LDL; low HDL): (5) ALISIA (acute kidney injury): Plan 62 year old male with PMH of HTN, CAD ,COPD on 2Ls home oxygen came in today with C/O worsening SOB, generalized body pain,chills,cough with productive whitish sputum started this monday and since then it has worsened,he denied any chest pain, headache, nausea,vomiting,abdominal pain. Assessment : Pneumonia ( CAP ) Acute COPD Exacerbation 2/2 to PNA ALISIA ON CKD HTN H/O CAD PLan : D-dimer: 0.65 Sputum Gram stain and culture: Few Gram-positive cocci in pairs, few gram-negative rods Urine legionella antigen : Negative Bacterial antigen panel: Negative Blood Culture :NTD Currently on ceftriaxone as well as Azithromycin Solumedrol I.V Duo nebs Anti tussives Gentle I,V Hydration, monitor inatke/output,avoid nephrotoxics. Code :Full code Plan for today:Continue I.V Abxs, continue I.V Steroids,will plan to switch to oral. 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 transplanted heart: [place] heart Dyslipidemia (high LDL; low HDL) E78.5 ALISIA (acute kidney injury) N17.9
[2022-11-10] MEDS: enoxaparin 40 mg/0.4 mL Syringe SUBCUT (17:05)
[2022-11-11] VITALS (12 sets, daily range): BP systolic 112–157; BP diastolic 62–93; PULSE 75–101; RESP 15–18; TEMP 36.4–36.9; O2SAT 93–99
[2022-11-11 05:53] LABS: Basophils % 0.3 %; Eosinophils % 0.1 %; Hematocrit 52.6 % (42.0-52.0); Hemoglobin 16.1 g/dL (11.7-16.6); Lymphocytes # 1.1 10^3/uL (0.8-4.8); Lymphocytes % 9.6 %; Mean Corpuscular HGB Conc 30.6 g/dL (30.0-36.0); Mean Corpuscular Hemoglobin 28.9 pg (28.0-34.0); Mean Corpuscular Volume 94.4 fl (80-94); Monocytes # 0.5 10^3/uL (0.2-0.9); Monocytes % 4.1 %; Neutrophils # 9.77 10^3/uL (1.8-7.7); Neutrophils % 83.7 %; Nucleated Red Blood Cells % 0.2 %; Platelet Count 169 10^3/cmm (130-400); Red Blood Count 5.57 10^6/uL (4.1-5.3); Red Cell Distribution Width 14.9 % (12.1-15.1); White Blood Count 11.7 10^3/uL (4.0-10.0)
[2022-11-11 06:19] LABS: Blood Urea Nitrogen 26 mg/dL (8-23); Calcium 8.9 mg/dL (8.5-10.5); Carbon Dioxide 34 mmol/L (22-29); Chloride 99 mmol/L (98-107); Glomerular Filtration Rate 61.3 mL/min (90-130); Glucose 161 mg/dL (65-115); Osmolality Calculated 294 mOsm/kg (285-295); Sodium 138 mmol/L (136-145)
[2022-11-11 06:22] LABS: Anion Gap 10.4 (5-19); Potassium 5.4 mmol/L (3.5-5.1)
[2022-11-11] MEDS: azithromycin 500 MG in sodium chloride 0.9% 250 ML 250 MG IV (06:32)
[2022-11-11] MEDS: ipratropium-albuterol 3 mL Neb INHALATION ×3 (08:15→21:43)
[2022-11-11] MEDS: acetylcysteine 200 mg/mL SDV 4 mL 100 MG INHALATION ×3 (08:16→21:42)
[2022-11-11] MEDS: cefTRIAXone 1,000 MG in sodium chloride 0.9% (plus) 50 ML 100 MG IV (08:27)
[2022-11-11] MEDS: guaiFENesin 600 mg Tablet PO ×2 (08:27→17:01)
[2022-11-11] MEDS: enoxaparin 40 mg/0.4 mL Syringe SUBCUT (17:02)
--- NOTE | 2022-11-11 18:07 | P.PN_ITS ---
Subjective Subjective: Patient was seen and examined this morning, she supplemental oxygen requirement has come down Currently requiring 3/4 Ls oxygen. Overall feels better. Will de-escalate IV steroids. Medications: Medication Review Details: Generic Name Dose Route Start Last Admin Trade Name Frekeith PRN Reason Stop Dose Admin Acetaminophen 650 mg 11/08/22 18:17 11/09/22 08:32 Acetaminophen 32 5 Mg Tablet PO 650 mg Q6H PRN Administration Mild/Mod Pain Or Temp >/= 101 Acetylcysteine 100 mg 11/09/22 20:00 11/10/22 14:18 Acetylcysteine 2 00 Mg/Ml Sdv 4 Ml INHALATION 100 mg Q6H.RESP MISHEL Administration Albuterol/Ipratrop ium 3 ml 11/08/22 20:00 11/10/22 14:17 Ipratropium-Albu terol 3 Ml Neb INHALATION 3 ml Q6H.RESP MISHEL Administration Enoxaparin Sodium 40 mg 11/08/22 19:00 11/09/22 17:54 Enoxaparin 40 Mg /0.4 Ml Syringe SUBCUT 40 mg Q24H MISHEL Administration Guaifenesin 600 mg 11/09/22 18:00 11/10/22 08:49 Guaifenesin 600 Mg Tablet PO 600 mg BID MISHEL Administration Ceftriaxone Sodium 1,000 mg/ 50 mls @ 100 mls/ hr 11/09/22 08:00 11/10/22 09:30 Sodium Chloride IV Infused Q24H MISHEL Infusion Protocol Azithromycin 500 m g/ Sodium 250 mls @ 250 mls /hr 11/09/22 07:00 11/10/22 07:40 Chloride IV Infused Q24H MISHEL Infusion Protocol Methylprednisolone Sodium Succinate 40 mg 11/09/22 14:00 11/10/22 13:19 Methylprednisolo ne Sod Succ 40 Mg/ Ml Inj IVP 40 mg Q6H MISHEL Administration Vitals/I&O/Wt Last Vital Signs Temp 98.0 F 11/11/22 15:54 Pulse 85 11/11/22 15:54 Resp 16 11/11/22 15:54 BP 126/68 11/11/22 15:54 Pulse Ox 96 11/11/22 15:54 O2 Del Method 11/11/22 15:54 O2 Flow Rate 2 11/11/22 13:41 FiO2 5 11/10/22 20:00 11/11/22 11/11/22 11/11/22 06:59 14:59 22:59 Intake Total 325 / 2165 875 / 875 240 / 1115 Balance 325 / 2165 875 / 875 240 / 1115 Physical Exam Const: COMMON NORMALS: patient oriented x3 HENMT: COMMON NORMALS: normocephalic and atraumatic HEAD & SCALP: normocephalic and atraumatic Resp: COMMON NORMALS: clear to auscultation bilaterally AUSCULTATION: clear to auscultation bilaterally OTHER: Diminished air entry B/L. Cardio: COMMON NORMALS: regular rate, regular rhythm, S1 normal heart sound present, S2 normal heart sound present, No gallops present (Cardio), No murmurs present (Cardio), No rub (Cardio) and Peripheral pulses 2+ throughout RATE: regular rate RHYTHM: regular rhythm HEART SOUNDS: S1 normal heart sound present and S2 normal heart sound present PERIPHERAL PULSES: Peripheral pulses 2+ throughout GI: COMMON NORMALS: Normal to inspection, nondistended, normoactive bowel sounds present, Soft to palpation, non-tender, No hepatosplenomegaly present and no masses AUSCULTATION: Yes normoactive bowel sounds PALPATION: Yes Soft to palpation and Yes No hepatosplenomegaly present RECTAL EXAM: Yes deferred Extremity: COMMON NORMALS: no clubbing, cyanosis or edema and no pedal edema Neuro: COMMON NORMALS: patient oriented x3 Data 11/11/22 05:24 11/11/22 05:24 Micro: Microbiology 11/09/22 01:14 Gram Stain - Final Sputum - Expectorated Sputum Sputum Culture - Final A&P Assessment and plan (1) Pneumonia: (2) Acute exacerbation of chronic obstructive airways disease: (3) Coronary artery disease: Qualifiers: Associated angina: without angina Coronary Disease-Associated Artery/Lesion type: [place] artery [place] vs. transplanted heart: [place] heart Qualified Code(s): I25.10 - Atherosclerotic heart disease of [place] coronary artery without angina pectoris (4) Dyslipidemia (high LDL; low HDL): (5) ALISIA (acute kidney injury): Plan 62 year old male with PMH of HTN, CAD ,COPD on 2Ls home oxygen came in today with C/O worsening SOB, generalized body pain,chills,cough with productive whitish sputum started this monday and since then it has worsened,he denied any chest pain, headache, nausea,vomiting,abdominal pain. Assessment : Pneumonia ( CAP ) Acute COPD Exacerbation 2/2 to PNA ALISIA ON CKD HTN H/O CAD PLan : D-dimer: 0.65 Sputum Gram stain and culture: Few Gram-positive cocci in pairs, few gram- negative rods Urine legionella antigen : Negative Bacterial antigen panel: Negative Blood Culture :NTD Currently on ceftriaxone as well as Azithromycin Solumedrol I.V Duo nebs Anti tussives Gentle I,V Hydration, monitor inatke/output,avoid nephrotoxics. Code :Full code Plan for today:Continue I.V Abxs, continue I.V Steroids,will plan to switch to oral. DVT PPX: On lovenox Attestations Medical Necessity Statement*: Patient is in hospital for management of pneumonia. 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 transplanted heart: [place] heart Dyslipidemia (high LDL; low HDL) E78.5 ALISIA (acute kidney injury) N17.9
[2022-11-12] VITALS (11 sets, daily range): BP systolic 105–155; BP diastolic 61–81; PULSE 73–108; RESP 15–18; TEMP 36.4–36.7; O2SAT 86–97
[2022-11-12] MEDS: azithromycin 500 MG in sodium chloride 0.9% 250 ML 250 MG IV (06:47)
[2022-11-12] MEDS: acetylcysteine 200 mg/mL SDV 4 mL 100 MG INHALATION ×2 (08:34→13:28)
[2022-11-12] MEDS: ipratropium-albuterol 3 mL Neb INHALATION ×2 (08:34→13:28)
[2022-11-12] MEDS: guaiFENesin 600 mg Tablet PO (08:47)
[2022-11-12] MEDS: cefTRIAXone 1,000 MG in sodium chloride 0.9% (plus) 50 ML 100 MG IV (08:48)
--- NOTE | 2022-11-12 08:53 | PC.SOCIAL ---
IMM update IMM updated with patient. Verbalized an understanding. Copy Pg 2 provided. Initialled, dated, timed, and placed in chart.
--- NOTE | 2022-11-12 10:59 | PM.DCS ---
Discharge Providers Date of Admission: 11/09/22 19:51 Date of Discharge: November 12, 2022 Attending Provider at Admission: Stevo Cho MD Attending Provider at Discharge: Stevo Cho MD Primary Care Provider: Kristan Martin NP Diagnoses at Discharge Discharge Diagnosis (1) Pneumonia: Status: Acute (2) Acute exacerbation of chronic obstructive airways disease: Status: Acute (3) Coronary artery disease: Status: Acute Qualifiers: Associated angina: without angina Coronary Disease-Associated Artery/Lesion type: [place] artery [place] vs. transplanted heart: [place] heart Qualified Code(s): I25.10 - Atherosclerotic heart disease of [place] coronary artery without angina pectoris Permanent problem details: Patient had a cardiac authorization in May 2016. 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 The major arteries were found to have only mild diffuse irregularities. The LVEDP was 27 mmHg. Ejection fraction was 65%. (4) Dyslipidemia (high LDL; low HDL): Status: Acute (5) ALISIA (acute kidney injury): Status: Acute Reason for Visit Reason for Visit: SOB Hospital Course Hospital Course 62 year old male with PMH of HTN, CAD ,COPD on 2Ls home oxygen came in today with C/O worsening SOB, generalized body pain,chills,cough with productive whitish sputum started this monday and since then it has worsened,he denied any chest pain, headache, nausea,vomiting,abdominal pain. He was admitted for the management of pneumonia ,COPD exacerbation, ALISIA on CKD hypertension.During the hospital stay he was kept on antibiotics steroids DuoNebs, supplemental oxygen as needed, Sputum Gram stain and culture: Few Gram-positive cocci in pairs, few gram-negative rods,Urine legionella antigen : Negative,Bacterial antigen panel: Negative, Blood Culture : Negative, RSV Type a PCR was positive, he responded well to medical management and at the time of discharge he was saturating well on baseline supplemental oxygen requirement of 2 Ls, shortness of breath had significantly improved, he was discharged on p.o. levofloxacin for 5 days as well as, p.o. prednisone for 5 days, has been continued on home inhaler. he was afebrile hemodynamically stable , Was discharged in stable condition to home, Physical Exam Const: COMMON NORMALS: patient oriented x3 HENMT: COMMON NORMALS: normocephalic and atraumatic HEAD & SCALP: normocephalic and atraumatic Resp: COMMON NORMALS: clear to auscultation bilaterally AUSCULTATION: clear to auscultation bilaterally OTHER: Minimal expiratory wheezing. Cardio: COMMON NORMALS: regular rate, regular rhythm, S1 normal heart sound present, S2 normal heart sound present, No gallops present (Cardio), No murmurs present (Cardio), No rub (Cardio) and Peripheral pulses 2+ throughout RATE: regular rate RHYTHM: regular rhythm HEART SOUNDS: S1 normal heart sound present and S2 normal heart sound present PERIPHERAL PULSES: Peripheral pulses 2+ throughout GI: COMMON NORMALS: Normal to inspection, nondistended, normoactive bowel sounds present, Soft to palpation, non-tender, No hepatosplenomegaly present and no masses AUSCULTATION: Yes normoactive bowel sounds PALPATION: Yes Soft to palpation and Yes No hepatosplenomegaly present RECTAL EXAM: Yes deferred Extremity: COMMON NORMALS: no clubbing, cyanosis or edema and no pedal edema Neuro: COMMON NORMALS: patient oriented x3 Discharge Data Studies Completed and Pending Completed Studies During Hospitalization Category Date Time Status XR chest 1V portable [id number] Routine Exams 11/10/22 06:00 Completed XR chest 1V portable [id number] Stat Exams 11/08/22 15:32 Completed Pending at discharge Category Date Time Status Blood Culture Stat Lab 11/08/22 16:14 Results Radiology Impressions Chest X-Ray 11/10/22 06:00 IMPRESSION: Imaging findings of pulmonary congestion. Pneumonia should be excluded clinically. Laboratory Results WBC 11.7 10^3/uL (4.0-10.0) H 11/11/22 05:24 RBC 5.57 10^6/uL (4.1-5.3) H 11/11/22 05:24 Hgb 16.1 g/dL (11.7-16.6) 11/11/22 05:24 Hct 52.6 % (42.0-52.0) H 11/11/22 05:24 MCV 94.4 fl (80-94) H 11/11/22 05:24 MCH 28.9 pg (28.0-34.0) 11/11/22 05:24 MCHC 30.6 g/dL (30.0-36.0) 11/11/22 05:24 RDW 14.9 % (12.1-15.1) 11/11/22 05:24 Plt Count 169 10^3/cmm (130-400) 11/11/22 05:24 MPV 10.0 fL (7.4-10.4) 11/11/22 05:24 Neut % (Auto) 83.7 % 11/11/22 05:24 Lymph % (Auto) 9.6 % 11/11/22 05:24 Douglas % (Auto) 4.1 % 11/11/22 05:24 Eos % (Auto) 0.1 % 11/11/22 05:24 Baso % (Auto) 0.3 % 11/11/22 05:24 Neut # (Auto) 9.77 10^3/uL (1.8-7.7) H 11/11/22 05:24 Lymph # (Auto) 1.1 10^3/uL (0.8-4.8) 11/11/22 05:24 Douglas # (Auto) 0.5 10^3/uL (0.2-0.9) 11/11/22 05:24 Eos # (Auto) 0.0 10^3/uL (0.0-0.8) 11/11/22 05:24 Baso # (Auto) 0.0 10^3/uL (0.0-0.1) 11/11/22 05:24 Nucleated RBC % (auto) 0.2 % 11/11/22 05:24 Nucleated RBCs # 0.0 /100WBC 11/11/22 05:24 D-Dimer 0.65 ug/mIFEU (0-0.59) H 11/09/22 08:48 Sodium 138 mmol/L (136-145) 11/11/22 05:24 Potassium 5.4 mmol/L (3.5-5.1) H 11/11/22 05:24 Chloride 99 mmol/L (98-107) 11/11/22 05:24 Carbon Dioxide 34 mmol/L (22-29) H 11/11/22 05:24 Anion Gap 10.4 (5-19) 11/11/22 05:24 BUN 26 mg/dL (8-23) H 11/11/22 05:24 Creatinine 1.2 mg/dL (0.7-1.2) 11/11/22 05:24 GFR Calculation 61.3 mL/min (90-130) L 11/11/22 05:24 Glucose 161 mg/dL (65-115) H 11/11/22 05:24 Calculated Osmolality 294 mOsm/kg (285-295) 11/11/22 05:24 Calcium 8.9 mg/dL (8.5-10.5) 11/11/22 05:24 Total Bilirubin 0.6 mg/dL (0.15-1.2) 11/08/22 16:03 AST 35 U/L (0-40) 11/08/22 16:03 ALT 33 U/L (0-41) 11/08/22 16:03 Alkaline Phosphatase 61 U/L (40-130) 11/08/22 16:03 Total Protein 8.2 g/dL (6.6-8.7) 11/08/22 16:03 Albumin 4.2 g/dL (3.5-5.2) 11/08/22 16:03 Globulin 4.0 g/dL (1.3-4.6) 11/08/22 16:03 Procalcitonin 0.07 ng/mL (0-0.5) 11/09/22 02:46 Nasal Influ A H1 2009 PCR Not detected (NOT DETECT) 11/08/22 15:43 Coronavirus 229E (PCR) Not detected (NOT DETECT) 11/08/22 15:43 Influenza A (H1) PCR Not detected (NOT DETECT) 11/08/22 15:43 Influenza A (H3) PCR Not detected (NOT DETECT) 11/08/22 15:43 Influenza Type A Ag negative (Negative) 11/08/22 16:20 Influenza Type A (PCR) Not detected (NOT DETECT) 11/08/22 15:43 Influenza Type B Ag negative (Negative) 11/08/22 16:20 Influenza Type B (PCR) Not detected (NOT DETECT) 11/08/22 15:43 RSV Type A (PCR) Detected (NOT DETECT) A 11/08/22 18:03 RSV Type B (PCR) Not detected (NOT DETECT) 11/08/22 18:03 SARS-CoV-2 (PCR) Not detected (NOT DETECT) 11/08/22 15:43 SARS-CoV-2 Ag (Rapid) negative (Negative) 11/08/22 16:20 Vitals Last Vital Signs Temp 98.1 F 11/12/22 08:00 Pulse 76 11/12/22 08:46 Resp 16 11/12/22 08:36 BP 122/81 11/12/22 08:00 Pulse Ox 97 11/12/22 09:31 O2 Del Method 11/12/22 08:36 O2 Flow Rate 2 11/12/22 09:31 FiO2 2 11/11/22 20:00 Discharge Plan Discharge Patient Disposition: Home Condition: Stable Prescriptions: New levofloxacin 500 mg tablet 500 mg PO DAILY 5 Days Qty: 5 0RF Proventil HFA 90 mcg/actuation HFA aerosol inhaler 1 inh inhalation Q6H PRN (Reason: shortness of breath or wheezing) Qty: 6.7 2RF prednisone 20 mg tablet 40 mg PO DAILY 5 Days Qty: 20 0RF Continued albuterol sulfate 2.5 mg /3 mL (0.083 %) solution for nebulization 2.5 mg INHALATION Q6H rosuvastatin [Crestor] 10 mg tablet 10 mg PO QDAY aspirin 325 mg tablet 325 mg PO QDAY loratadine 10 mg capsule 10 mg PO QDAY esomeprazole magnesium [Nexium 24HR] 20 mg capsule,delayed release(DR/EC) 20 mg PO QDAY clopidogrel 75 mg tablet 75 mg PO QDAY nitroglycerin [Nitrostat] 0.4 mg tablet, sublingual 0.4 mg SUBLINGUAL Q5M PRN (Reason: Chest Pain) metoprolol tartrate 25 mg tablet 12.5 mg PO DAILY Advil 200 mg Tablet 400 mg PO Q6H PRN (Reason: Pain) furosemide 40 mg tablet 40 mg PO DAILY 30 Days Qty: 30 3RF potassium chloride 10 mEq tablet extended release 10 meq PO DAILY 30 Days Qty: 90 3RF fluticasone furoate 100 mcg/actuation blister with device 1 inh INHALATION Q24H 30 Days Qty: 30 2RF Held lisinopril 20 mg tablet 20 mg PO BID Hold Instructions: Resume on 11/15/22. Discontinued albuterol sulfate 90 mcg/actuation HFA aerosol inhaler 2 puff inhalation Q4H PRN (Reason: Shortness Of Breath Or Wheezing) Discharge Orders: Discharge Order (Routine); Ordered 11/12/22 Ordered By: Stevo Cho Other Ambulatory Orders: DME: Oxygen (Order) Location: None Selected Ordered By: Stevo Cho Referrals: Kristan Martin NP [Primary Care Provider] - 1 week (Please call Monday to schedule your follow up appointment with Kristan Martin.) Luis Carlisle MD [Physician] - 1 month Patient Instructions: Albuterol (By breathing), Prednisone (By mouth), Levofloxacin (By mouth), Pneumonitis (DC), Opioid Safety Discharge Attestations Time Spent in Discharge Care*: greater than 30 min Quality Metrics Clinical Quality Measures [ No reported AMI, CVA or VTE this stay] Coding Level of Care Code Acute Chg FW DC note Diagnoses Pneumonia J18.9 Acute exacerbation of chronic obstructive airways disease J44.1 Coronary artery disease I25.10 Associated angina: without angina Coronary Disease-Associated Artery/Lesion type: [place] artery [place] vs. transplanted heart: [place] heart Dyslipidemia (high LDL; low HDL) E78.5 ALISIA (acute kidney injury) N17.9
== END 2022-11-12 16:29 | disposition home or self-care (01) | DRG 190 ==
LOC: ER 18:58 → MEDSURG 19:43
PROVIDERS: Admitting Provider Internal Medicine; Emergency Provider Family Medicine; PCP Nurse Practitioner Family; Visit Provider Internal Medicine
DX: J44.1 Chronic obstructive pulmonary disease with (acute) exacerbation (principal); J12.1 Respiratory syncytial virus pneumonia; N17.9 Acute kidney failure, unspecified; J44.0 Chronic obstructive pulmonary disease with (acute) lower respiratory infection; I12.9 Hypertensive chronic kidney disease with stage 1 through stage 4 chronic kidney disease, or unspecified chronic kidney disease; N18.9 Chronic kidney disease, unspecified; I25.10 Atherosclerotic heart disease of native coronary artery without angina pectoris; E78.5 Hyperlipidemia, unspecified; F17.200 Nicotine dependence, unspecified, uncomplicated; Z99.81 Dependence on supplemental oxygen
CPT/HCPCS: 36415; 71045; 80048; 80053; 84145; 85025; 85378; 86403; 87040; 87070; 87205; 87426; 87449; 87631; 87635; 87801; 87804; 94640; 94760; 96365; 96372; 96375; 99285; G0378; J0456; J0696; J1650; J1956; J2920; J2930; J7030; J7050; J7608

== ENCOUNTER 2023-02-27 07:18 | Outpatient (CLI) | payer MEDICARE, MEDICAID, SELFPAY ==
[2023-02-27 07:41] VITALS: BMI 42.5
--- NOTE | 2023-02-27 07:41 | ECG_ITS ---
[facility] Test Date: 2023-02-27 Pat Name: Jose Adair Department: Room: Gender: Male Brancher: Phyllis Siddiqui : 1960 Requested By: Kristan Martin Order Number: [id number] Terrence MD: Luis Carlisle M.D. Interpretive Statements NAME OF STUDY: LEXISCAN SESTAMIBI STRESS TEST INDICATION: Shortness of Breath; Chest Pain, PROCEDURE: At the baseline, the EKG revealed normal sinus rhythm with a ST-T changes in the inferior and lateral leads.. The baseline heart was 92 bpm with a blood pressue of 133/88 mm of Hg Lexiscan was infused over a period of 20 seconds. A total of 0.4 milligrams of Lexiscan was infused. The stress phase was continued for a total of 5 minutes. Heart rate at the end of the stress phase was 94 bpm with a blood pressure 148/95 mm of Hg. The EKG at the peak infusion revealed no significant changes. Sestamibi was injected 20 seconds after the Lexiscan infusion. Heart rate at the end of the recovery phase was 92 bpm with a blood pressure of 142/88 mm of Hg. CONCLUSION: 1. No significant EKG changes with the LexiScan infusion 2. No LexiScan induced chest pain or cardiac arrhythmia 3. Normal blood pressure and heart rate response 4. Sestamibi/sestamibi perfusion scan pending; see separate report. Electronically Signed On 03-05-2023 15:56:23 CDT by Luis Carlisle M.D. [email or web address]
--- NOTE | 2023-02-27 07:41 | NMCV_ITS ---
NM yaneth perf SPECT r/s* [id number] Jose Adair Age: 62 Gender: M : 1960 Exam Date: 02/27/2023 08:40 Ordering Phys: Kristan Martin NP Technologist: CASTILLO Montalvo Exam Location: [facility] Indications: ATHEROSCLEROTIC HEART DISEASE, CHEST PAIN STRESS TEST [facility] IMAGE PROTOCOL Rest/Stress 1 Lexiscan Day Radiopharmaceutical Dose (mCi) Administration Site Administered by Rest: Tc-99m 10.8 IV CASTILLO Blanco Sestamibi Stress:Tc-99m 33.0 IV CASTILLO Blanco Sestamibi Rest: 27-Feb-2023 60 Discovery 630 Stress: 27-Feb-2023 30 Discovery 630 0.4mg Lexiscan. Supine position only as patient was unable to lay prone. SPECT RESULTS Technical Quality: Excellent Raw Data Analysis: Normal Image Corrections: No attenuation or motion correction applied Summed Stress Score: 0 Summed Rest Score: 0 Summed Difference Score: 0 PERFUSION FINDINGS Fairly uniform myocardial tracer uptake. No significant perfusion abnormalities. FUNCTIONAL RESULTS (calculated via Gated SPECT) Stress Image LV EF (%): 60 Stress EDV (mL):121 TID: 0.89 Stress ESV (mL):49 FUNCTIONAL FINDINGS: Segmental wall motion analysis revealing no gross wall motion abnormalities IMPRESSIONS 1. Myocardial perfusion imaging revealing uniform myocardial tracer uptake with no significant perfusion abnormalities. 2. Normal LV ejection fraction. 3. LV wall motion analysis revealing no gross wall motion abnormalities. 4. Normal LV volume Low probability for coronary ischemia, based on the above findings Dr Luis Carlisle MD FACC (Electronically Signed) Final Date: 27 February 2023 17:42 S
[2023-02-27] MEDS: regadenoson 0.4 Mg/5 ml Syringe IVP (09:30)
[2023-02-27 09:50] VITALS: BP 142/88; PULSE 93
== END 2023-02-27 07:19 | disposition home or self-care (01) ==
LOC: CDL 07:22
PROVIDERS: PCP Nurse Practitioner Family; Visit Provider Nurse Practitioner Family
DX: R07.9 Chest pain, unspecified (principal); I25.10 Atherosclerotic heart disease of native coronary artery without angina pectoris
CPT/HCPCS: 36415; 78452; 93017; 96374; A9500; J2785

== ENCOUNTER 2023-06-07 15:12 | Outpatient (CLI) | payer MEDICARE, MEDICAID, SELFPAY ==
--- NOTE | 2023-06-07 15:22 | CT_ITS ---
WS: [id number] LDCT LUNG CANCER SCREENING HISTORY: NICOTINE Dependence, cigarettes TECHNIQUE: Axial imaging performed from the apices to 1 cm below the costophrenic angles. Coronal and sagittal reformats are submitted with axial MIP series. All CT scans at [facility] use at least one of these dose optimization techniques: automated exposure control; mA and/or kV adjustment per patient size (includes targeted exams where dose is matched to clinical indication); or iterativ e reconstruction. DLP: 158.59 mGy.cm DIvol: Mean CTDIvol: 3.80 (mGy) COMPARISON: 05/31/2022 Diagnostic quality: Satisfactory Lungs: No pulmonary mass. No endobronchial lesions. Mild interstitial thickening from chronic lung di sease. Stable hazy nodular opacification RIGHT upper lobe measuring 4 mm. Heart: Normal size heart with no pericardial effusion.. Other findings: Mild atherosclerosis aorta. Moderate-sized hiatal hernia. No adrenal mass. Gallbladde r is contracted and contains a stone. No adjacent acute inflammation. Mild increase in thoracic kypho sis. Advanced degenerative changes throughout the thoracic spine. CT/CT lung screening [id number] IMPRESSION: LUNG-RADS: 2-Benign Appearance or Behavior FOLLOW UP: 12 Month: Continue annual screening with LDCT OTHER FINDINGS (S MODIFIER): None.
== END 2023-06-07 15:13 | disposition home or self-care (01) ==
LOC: RAD 15:16
PROVIDERS: PCP Nurse Practitioner Family; Visit Provider Nurse Practitioner Family
DX: Z12.2 Encounter for screening for malignant neoplasm of respiratory organs (principal); F17.210 Nicotine dependence, cigarettes, uncomplicated
CPT/HCPCS: 71271

== ENCOUNTER 2024-03-29 09:58 | Inpatient (IN) | payer MEDICARE, MEDICAID, SELFPAY ==
[2024-03-29] VITALS (17 sets, daily range): BP systolic 113–186; BP diastolic 55–115; PULSE 84–116; RESP 16–26; TEMP 36.6–38.3; O2SAT 91–96; BMI 44.9
--- NOTE | 2024-03-29 10:03 | XR_ITS ---
WS: [id number] Portable AP upright chest, 03/29/2024 Clinical Data: sob Comparison: Portable chest, 11/10/2022 Findings: No nodules, masses or effusions are seen. The heart is normal. The pulmonary vascularity is not increased. No pneumonia or pneumothorax is seen. There is minimal patchy bilateral lower lobe op acity which may represent atelectasis and minimal pneumonia. The aortic arch and descending thoracic aorta show mild tortuosity. There are monitor leads on the chest wall. There is an anterior cervical disc fusion at C6-C7. XR/XR chest 1V portable [id number] Impression: 1. Minimal bilateral lower lobe opacities which may represent atelectasis and/o r minimal pneumonia. 2. Atherosclerosis.
--- NOTE | 2024-03-29 10:05 | ED_ITS ---
HPI - SOB/Dyspnea 2 General: Chief Complaint: Shortness of Breath/Dyspnea Stated Complaint: difficulty breathing Time Seen by Provider: 03/29/24 10:00 Source: patient and EMS Mode of arrival: EMS Limitations: no limitations History of Present Illness: HPI Narrative: 63-year-old male with a history of COPD CHF longtime smoker states that the last 2 days he has been having increasing shortness of breath along with a productive cough and subjective fevers at home. EMS states they had to place him on 3 L and has been satting in the mid 90s on 3 L he states that he has been told he supposed wear oxygen at home but does not. He states his cough is productive of green sputum he denies any pains or vomiting Associated symptoms: Deny abdominal pain, chest pain, fever(s), nausea or vomiting Review of Systems 2 Const: Denies: fever(s), chills, body aches or change in appetite ENMT: Denies: throat pain or dental pain Card: Denies: chest pain Resp: Reports: dyspnea, productive cough and wheezing GI: Denies: abdominal pain, nausea, vomiting or diarrhea Musc: Denies: neck pain or back pain Skin/Breast: Denies: rash Neuro: Denies: headache(s) PFSH ED 2 PFSH: Medical History ALISIA (acute kidney injury) Acute exacerbation of chronic obstructive airways disease Pneumonia Coronary artery disease Patient had a cardiac authorization in May 2016. 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 The major arteries were found to have only mild diffuse irregularities. The LVEDP was 27 mmHg. Ejection fraction was 65%. Dyslipidemia (high LDL; low HDL) Leg swelling Tobacco dependence Non-ST elevation (NSTEMI) myocardial infarction COPD (chronic obstructive pulmonary disease) GERD (gastroesophageal reflux disease) Essential hypertension Bradycardia ASHD (arteriosclerotic heart disease) Sleep apnea Heart murmur History of left heart catheterization Surgical History Hx of repair of left rotator cuff Hx of knee surgery Hx of neck surgery Family History Sister Diabetes Grandfather Diabetes Father Hypertension Cancer Mother Hypertension Sister Hypertension Brother Hypertension CAD (coronary artery disease) Social History Smoking and tobacco/nicotine status: current some day tobacco/nicotine user Alcohol intake: never Substance/Drug Use: never Marital status: Current occupational status: employed Physical Exam 2 Const: COMMON NORMALS: patient oriented x3 GENERAL APPEARANCE: in distress HENMT: COMMON NORMALS: normocephalic and atraumatic HEAD & SCALP: n ormocephalic and atraumatic Eye: COMMON NORMALS: Equal, round and reactive pupils present and EOMs intact bilaterally PUPIL: Yes Equal, round and reactive pupils present Neck/C-Spine: COMMON NORMALS: full ROM and supple Chest: COMMONS NORMALS: normal inspection of the chest Resp: COMMON NORMALS: No retractions and No use of accessory muscles EFFORT & INSPECTION: Yes tachypneic and Yes respiratory distress AUSCULTATION: r honchi and wheezes Cardio: COMMON NORMALS: regular rate, regular rhythm and No murmurs present (Cardio) RATE: regular rate RHYTHM: regular rhythm GI: COMMON NORMALS: Normal to inspection, nondistended, normoactive bowel sounds present, Soft to palpation, non-tender and no masses PALPATION: Yes Soft to palpation Extremity: COMMON NORMALS: normal to inspection and full ROM Neuro: COMMON NORMALS: patient oriented x3, moves all extremities and no focal motor deficits Psych: COMMON NORMALS: mental status grossly normal, Normal thought process present and cooperative THOUGHT PROCESS: Normal thought process present Skin: COMMON NORMALS: no rashes or lesions noted and no wounds GENERAL SKIN EXAM: no rashes or lesions noted Course 2 Vital Signs: Vital signs: Vital Signs Temperature 101.0 F H 03/29/24 09:59 Pulse Rate 114 H 03/29/24 10:35 Respiratory Rate 22 H 03/29/24 10:25 Blood Pressure 186/115 03/29/24 10:35 Pulse Oximetry 93 03/29/24 10:35 Oxygen Delivery Me thod Nasal Cannula 03/29/24 10:35 Oxygen Flow Rate 2 03/29/24 10:35 MDM - SOB/Dyspnea Medical Decision Making Patient presents here with pneumonia he is febrile here did only give him 1 L of fluids he has a history of CHF and his blood pressure here has been high start him on antibiotics Blood cultures spoke to hospitalist will admit Medical Records I reviewed the patient's medical records. Lab Data I reviewed the patient's lab results. 03/29/24 10:30 03/29/24 10:30 Labs/Radiology: Radiology Impressions Chest X-Ray 03/29/24 10:03 Impression: 1. Minimal bilateral lower lobe opacities which may represent atelectasis and/or minimal pneumonia. 2. Atherosclerosis. Laboratory Results WBC 10.89 10^3/uL (3.29-11.43) 03/29/24 10:30 RBC 5.75 10^6/uL (3.85-5.65) H 03/29/24 10:30 Hgb 17.10 g/dL (11.27-16.99) H 03/29/24 10:30 Hct 53.9 % (37-53) H 03/29/24 10:30 MCV 93.7 fl (82-101) 03/29/24 10:30 MCH 29.7 pg (27-33) 03/29/24 10:30 MCHC 31.7 g/dL (30-55) 03/29/24 10:30 RDW 15.0 % (12.1-15.1) 03/29/24 10:30 Plt Count 171 10^3/cmm (157-399) 03/29/24 10:30 MPV 9.6 fL (7.4-10.4) 03/29/24 10:30 Neut % (Auto) 70.8 % 03/29/24 10:30 Lymph % (Auto) 18.3 % 03/29/24 10:30 [place] % (Auto) 9.5 % 03/29/24 10:30 Eos % (Auto) 0.5 % 03/29/24 10:30 Baso % (Auto) 0.5 % 03/29/24 10:30 Neut # (Auto) 7.73 10^3/uL (1.8-7.7) H 03/29/24 10:30 Lymph # (Auto) 2.0 10^3/uL (0.8-4.8) 03/29/24 10:30 [place] # (Auto) 1.0 10^3/uL (0.2-0.9) H 03/29/24 10:30 Eos # (Auto) 0.1 10^3/uL (0.0-0.8) 03/29/24 10:30 Baso # (Auto) 0.1 10^3/uL (0.0-0.1) 03/29/24 10:30 Nucleated RBC % (auto) 0 % 03/29/24 10:30 Nucleated RBCs # 0.0 /100WBC 03/29/24 10:30 PT 14.80 SECONDS (12.1-14.9) 03/29/24 10:30 INR 1.12 (0.8-1.2) 03/29/24 10:30 Specimen Type Arterial 03/29/24 10:15 Sample Site Radial, left 03/29/24 10:15 ABG pH 7.38 (7.35-7.45) 03/29/24 10:15 ABG pCO2 48.2 mmHg (35-45) H 03/29/24 10:15 ABG pO2 64.2 mmHg (80.0-100.0) L 03/29/24 10:15 ABG PO2/FiO2 Ratio 0 03/29/24 10:15 ABG HCO3 28.2 mmol/L (22-26) H 03/29/24 10:15 ABG Base Excess 2.0 mmol/L (-2.0-2.0) 03/29/24 10:15 Sam Test Pos 03/29/24 10:15 Hematocrit 53.2 % (42-52) H 03/29/24 10:15 O2 Delivery Device Nc 03/29/24 10:15 O2 Liters/Min 2.0 % 03/29/24 10:15 FiO2 28.0 % 03/29/24 10:15 Printing Film Stripper ID Cak 03/29/24 10:15 Sodium 138 mmol/L (136-145) 03/29/24 10:30 Potassium 4.3 mmol/L (3.5-5.1) 03/29/24 10:30 Chloride 99 mmol/L (98-107) 03/29/24 10:30 Carbon Dioxide 29 mmol/L (22-29) 03/29/24 10:30 Anion Gap 14.3 (5-19) 03/29/24 10:30 BUN 15 mg/dL (8-23) 03/29/24 10:30 Creatinine 1.4 mg/dL (0.7-1.2) H 03/29/24 10:30 GFR Calculation 51.2 mL/min (90-130) L 03/29/24 10:30 Glucose 142 mg/dL (65-115) H 03/29/24 10:30 Calculated Osmolality 289 mOsm/kg (285-295) 03/29/24 10:30 Lactic Acid 2.6 mmol/L (0.5-2.2) H 03/29/24 10:30 Calcium 9.2 mg/dL (8.5-10.5) 03/29/24 10:30 Total Bilirubin 0.5 mg/dL (0.15-1.2) 03/29/24 10:30 AST 27 U/L (0-40) 03/29/24 10:30 ALT 33 U/L (0-41) 03/29/24 10:30 Alkaline Phosphatase 64 U/L (40-130) 03/29/24 10:30 NT-Pro-B Natriuret Pep 545 pg/mL (0-125) H 03/29/24 10:30 Total Protein 7.6 g/dL (6.6-8.7) 03/29/24 10:30 Albumin 3.8 g/dL (3.5-5.2) 03/29/24 10:30 Globulin 3.8 g/dL (1.3-4.6) 03/29/24 10:30 SARS-CoV-2 Ag (Rapid) negative (Negative) 03/29/24 10:39 All radiology interpretation(s) finalized by discharge EKG Data EKG 1: I personally reviewed and interpreted this EKG as follows: EKG Interpretation Date: 03/29/24 EKG interpretation time: 10:17 Interpretation: sinus tach hr [address] elevation qrs 133 qtc 405 Discharge Plan Discharge Patient Disposition: Admitted As Inpatient Clinical Impression: Community acquired pneumonia Condition: Stable Prescriptions: No Action rosuvastatin [Crestor] 10 mg tablet 10 mg PO QDAY esomeprazole magnesium [Nexium 24HR] 20 mg capsule,delayed release(DR/EC) 20 mg PO QDAY clopidogrel 75 mg tablet 75 mg PO QDAY nitroglycerin [Nitrostat] 0.4 mg tablet, sublingual 0.4 mg SUBLINGUAL Q5M PRN (Reason: Chest Pain) metoprolol tartrate 25 mg tablet 25 mg PO DAILY furosemide 40 mg tablet 40 mg PO DAILY 30 Days Qty: 30 3RF potassium chloride 10 mEq tablet extended release 10 meq PO DAILY 30 Days Qty: 90 3RF albuterol sulfate [Proventil HFA] 90 mcg/actuation HFA aerosol inhaler 1 inh inhalation Q6H PRN (Reason: shortness of breath or wheezing) Qty: 6.7 2RF ipratropium-albuterol 0.5 mg-3 mg(2.5 mg base)/3 mL solution for nebulization 3 ml INHALATION QID metformin 500 mg tablet extended release 24 hr 500 mg PO QPM Referrals: Kristan Martin RATTLING MACHINE TENDER [Primary Care Provider] - Coding Level of Care Code ED Field Sampling Technician for Murray Espino
--- NOTE | 2024-03-29 10:17 | ECG_ITS ---
[facility] Test Date: 2024-03-29 Pat Name: Jose Adair Department: Room: Gender: Male [employer] Intern[employer]: : 1960 Requested By: Adalberto Diana Order Number: [id number] Terrence MD: Liang Montoya M.D. Measurements Intervals [place] Rate: 113 P: 74 MI: 187 QRS: 55 QRSD: 133 T: -14 QT: 338 QTc: 464 Interpretive Statements SINUS TACHYCARDIA RIGHT BUNDLE BRANCH BLOCK [120+ ms QRS DURATION, UPRIGHT V1, 40+ ms S IN I/aVL/V4/V5/V6] SEPTAL MYOCARDIAL INFARCTION , OF INDETERMINATE AGE [40+ ms Q WAVE IN V1/V2] Compared to ECG 12/26/2017 15:46:09 Right bundle-branch block now present Sinus rhythm no longer present Incomplete right bundle-branch block no longer present Myocardial infarct finding still present Electronically Signed On 03-29-2024 14:50:16 CDT by Liang Montoya M.D. [id number]
[2024-03-29 10:26] LABS: ABG PCO2 48.2 mmHg (35-45); ABG PH Result 7.38 (7.35-7.45); Arterial Blood Gas Hematocrit 53.2 % (42-52); Blood Gas Allen Test Pos; Blood Gas Operator Identificat CAK; Blood Gas Sample Site Radial, left; Blood Gas Sample Type Arterial; HCO3 ABG 28.2 mmol/L (22-26); Oxygen Device NC; PO2 ABG 64.2 mmHg (80.0-100.0); PO2 FiO2 Ratio Arterial Blood 0
[2024-03-29] MEDS: albuterol 2.5 mg/3 mL Neb INHALATION (10:29)
[2024-03-29 10:43] LABS: Basophils # 0.1 10^3/uL (0.0-0.1); Basophils % 0.5 %; Eosinophils # 0.1 10^3/uL (0.0-0.8); Eosinophils % 0.5 %; Hematocrit 53.9 % (37-53); Lymphocytes % 18.3 %; Mean Corpuscular HGB Conc 31.7 g/dL (30-55); Mean Corpuscular Hemoglobin 29.7 pg (27-33); Mean Corpuscular Volume 93.7 fl (82-101); Mean Platelet Volume 9.6 fL (7.4-10.4); Monocytes % 9.5 %; Neutrophils # 7.73 10^3/uL (1.8-7.7); Neutrophils % 70.8 %; Nucleated Red Blood Cells % 0 %; Platelet Count 171 10^3/cmm (157-399); Red Blood Count 5.75 10^6/uL (3.85-5.65); White Blood Count 10.89 10^3/uL (3.29-11.43)
--- NOTE | 2024-03-29 10:47 | P.HP_ITS ---
Providers/Chief Complaint 2 Primary Care Provider: Kristan Martin NP Chief Complaint: difficulty breathing History of Present Illness Jose Adair is a 63 year old male patient presented today with chief complaint orthopnea PND and shortness of breath. Patient stating that he uses oxygen on as-needed basis at nighttime around 2 L, smokes 1 pack/day, has history of congestive heart failure, has been noticing subjective fevers, no active chest pain nausea or vomiting. Patient stating that he is DNR/DNI, in case of any worsening sisters could be notified but they cannot make a decision for him. Patient is denying chest pain, x-ray showing infiltrate consistent with pneumonia. Patient endorsing to 3-day history of orthopnea PND adductive cough AntiBac to fevers. Currently he is requiring 2 L of oxygen. EMS put him on 3 L for his hypoxia. Review of Systems 2 Const: Reports: fever(s) and chills Eyes: Denies: change in vision ENMT: Denies: throat pain Card: Reports: swelling of feet/ankles Resp: Reports: dyspnea GI: Denies: abdominal pain Medications/Allergies Home Medications Medication Instructions Recorded Confirmed Last Taken Type clopidogrel 75 mg tablet 75 mg PO QDAY 12/09/19 03/29/24 03/28/24 History esomeprazole magnesium 20 mg 20 mg PO QDAY 12/09/19 03/29/24 03/28/24 History capsule,delayed release (Nexium 24HR) metoprolol tartrate 25 mg tablet 25 mg PO DAILY 12/09/19 03/29/24 03/28/24 History nitroglycerin 0.4 mg sublingual 0.4 mg sublingual Q5M PRN Chest 12/09/19 03/29/24 Unknown History tablet (Nitrostat) Pain rosuvastatin 10 mg tablet (Crestor) 10 mg PO QDAY 12/09/19 03/29/24 03/28/24 History albuterol sulfate 90 mcg/actuation 1 inh inhalation Q6H PRN shortness 11/12/22 03/29/24 Unknown Rx aerosol inhaler (Proventil HFA) of breath or wheezing #6.7 grams furosemide 40 mg tablet 40 mg PO DAILY 30 days #30 tabs 11/12/22 03/29/24 03/28/24 Rx potassium chloride 10 mEq 10 meq PO DAILY 30 days #90 tabs 11/12/22 03/29/24 03/28/24 Rx tablet,extended release ipratropium 0.5 mg-albuterol 3 mg 3 ml inhalation QID 03/29/24 03/29/24 03/28/24 History (2.5 mg base)/3 mL nebulization soln metformin 500 mg tablet,extended 500 mg PO QPM 03/29/24 03/29/24 03/28/24 History release 24 hr Allergies Allergy/AdvReac Type Severity Reaction Status Date / Time acetaminophen [From [place]] Allergy UNKNOWN Verified 11/08/22 16:03 diphenhydramine Allergy UNKNOWN Verified 11/08/22 16:03 [From Benadryl] hydrocodone [From Thompson] Allergy UNKNOWN Verified 11/08/22 16:03 PFSH Acute 2 PFSH: Medical History ALISIA (acute kidney injury) Acute exacerbation of chronic obstructive airways disease Pneumonia Coronary artery disease Patient had a cardiac authorization in May 2016. 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 The major arteries were found to have only mild diffuse irregularities. The LVEDP was 27 mmHg. Ejection fraction was 65%. Dyslipidemia (high LDL; low HDL) Leg swelling Tobacco dependence Non-ST elevation (NSTEMI) myocardial infarction COPD (chronic obstructive pulmonary disease) GERD (gastroesophageal reflux disease) Essential hypertension Bradycardia ASHD (arteriosclerotic heart disease) Sleep apnea Heart murmur History of left heart catheterization Surgical History Hx of repair of left rotator cuff Hx of knee surgery Hx of neck surgery Family History Sister Diabetes Grandfather Diabetes Father Hypertension Cancer Mother Hypertension Sister Hypertension Brother Hypertension CAD (coronary artery disease) Social History Smoking and tobacco/nicotine status: current some day tobacco/nicotine user Alcohol intake: never Substance/Drug Use: never Marital status: Current occupational status: employed Vitals/I&O/Wt Last Vital Signs Temp 101.0 F H 03/29/24 09:59 Pulse 114 H 03/29/24 10:35 Resp 22 H 03/29/24 10:25 BP 186/115 03/29/24 10:35 Pulse Ox 93 03/29/24 10:35 O2 Del Method Nasal Cannula 03/29/24 10:35 O2 Flow Rate 2 03/29/24 10:35 Weight last 48 hrs Weight 122.47 kg Physical Exam 2 Narrative: Concern of congestive heart failure Currently on 2 L Awake and alert No acute chest pain Crackles positive on lung auscultation Lower extremity edema 3+ Morbidly obese Distended abdomen nontender Present cooperative Nonfocal neuroexam Data 03/29/24 10:30 03/29/24 10:30 Micro: Microbiology 03/29/24 10:35 Blood Culture - Preliminary Blood SPECIMEN COLLECTED 03/29/24 10:30 Blood Culture - Preliminary Blood SPECIMEN COLLECTED A&P Assessment and plan (1) Acute exacerbation of CHF (congestive heart failure): (2) Hypertensive urgency: (3) Nicotine addiction: (4) Acute respiratory failure with hypoxia: (5) COPD exacerbation: (6) Leg swelling: Plan Acute diastolic CHF exacerbation Give IV Lasix Acute hypoxia Currently in heart failure with pneumonia Start antibiotics and Lasix Increased work of breathing may benefit from BiPAP overnight if needed Otherwise uses 2 L of oxygen for sleep apnea at nighttime Sepsis related to pneumonia Judicious use of IV fluids, patient currently is in heart failure as well Criteria met with fever tachypnea tachycardia high lactic acid Start antibiotics to take blood culture, repeat lactic acid Goals of care discussed with the patient he is DNR/DNI Stating that he does not have medical DPOA, in case something happens he wants his sisters to be notified Acute on chronic kidney disease likely cardiorenal Cardiac diet Hypertensive urgency adjust antibiotic regimen Lactic acidosis/related to sepsis anticipating improvement Attestations 2 Medical Necessity Statement*: More than 2 midnights anticipated Diagnoses Acute exacerbation of CHF (congestive heart failure) I50.9 Hypertensive urgency I16.0 Nicotine addiction F17.200 Acute respiratory failure with hypoxia J96.01 COPD exacerbation J44.1 Leg swelling M79.89
[2024-03-29] MEDS: methylPREDNISolone sod succ 125 mg/2 mL INJ IVP (10:52)
[2024-03-29] MEDS: acetaminophen 500 mg Tablet 1000 MG PO (10:53)
--- NOTE | 2024-03-29 10:54 | PC.PHAR ---
PT USES [facility] FOR MEDICATION SET UP [phone]. VERIFIED ALL MEDICATIONS WITH HIS NURSE 03/29/24
[2024-03-29] MEDS: cefTRIAXone 1,000 MG in sodium chloride 0.9% (plus) 50 ML 100 MG IV ×2 (10:55→13:57)
[2024-03-29] MEDS: sodium chloride 0.9% 1,000 ML 999 ML IV (10:56)
[2024-03-29 11:00] LABS: SARS Covid-2 Antigen negative (Negative)
[2024-03-29 11:03] LABS: INR 1.12 (0.8-1.2)
[2024-03-29 11:11] LABS: Lactic Sepsis W/Reflex 2.6 mmol/L (0.5-2.2)
[2024-03-29 11:23] LABS: Alanine Aminotransferase 33 U/L (0-41); Albumin Level 3.8 g/dL (3.5-5.2); Alkaline Phosphatase 64 U/L (40-130); Anion Gap 14.3 (5-19); Aspartate Amino Transferase 27 U/L (0-40); Blood Urea Nitrogen 15 mg/dL (8-23); Calcium 9.2 mg/dL (8.5-10.5); Carbon Dioxide 29 mmol/L (22-29); Chloride 99 mmol/L (98-107); Globulin 3.8 g/dL (1.3-4.6); Glomerular Filtration Rate 51.2 mL/min (90-130); Glucose 142 mg/dL (65-115); NT Pro B Type Natriuretic Pept 545 pg/mL (0-125); Osmolality Calculated 289 mOsm/kg (285-295); Potassium 4.3 mmol/L (3.5-5.1); Sodium 138 mmol/L (136-145); Total Bilirubin 0.5 mg/dL (0.15-1.2); Total Protein 7.6 g/dL (6.6-8.7)
[2024-03-29 11:27] LABS: Creatinine Clr Calc Pharmacy 65.6089
[2024-03-29 11:46] LABS: D Dimer 0.48 ug/mLFEU (0-0.59)
[2024-03-29] MEDS: azithromycin 500 MG in sodium chloride 0.9% 250 ML 250 MG IV (11:46)
[2024-03-29 12:20] LABS: Influenza A by IFA negative (Negative); Influenza B by IFA negative (Negative)
[2024-03-29 12:27] LABS: Reflex Lactate Order REFLEX LACTIC ORDERD
--- NOTE | 2024-03-29 12:58 | USCV_ITS ---
Jose Adair Age: 63 Gender: M : 1960 Exam Date: 03/29/2024 14:32 Ordering Phys: Ana Ríos MD Technologist: FAY Exam Location: [facility] [place] Indication: CHRONIC HEART FAILURE, SHORTNESS OF BREATH BP: 127 / 100 HR: 101 Rhythm: Sinus Technical Quality: Suboptimal MEASUREMENTS (Male / Female) Normal Values 2D ECHO LVOT Diameter 1.9 cm LV Ejection Fraction MOD 2C 53.5 % LV Ejection Fraction 2C AL 54.2 % LA Diameter 3.1 cm RA Systolic Volume 4C AL 24.9 ml RA Systolic Volume 4C MOD 23.3 ml LA Sys Volume AL 42.6 cm cubed LA Sys Volume Index AL 17.5 cm cubed/m squared Aorta at Sinotubular Diameter 1.8 cm M-MODE LA Ao Ratio MM 1.0 AV Cusp Separation MM 1.0 cm DOPPLER AV Peak Velocity 304.8 cm/s LVOT Peak Velocity 143.0 cm/s AV Area Cont Eq vti 1.7 cm squared AV Area Cont Eq pk 1.4 cm squared MV Peak Velocity 272.0 cm/s MV Area PHT 5.9 cm squared Mitral E to A Ratio 1.0 TR Peak Velocity 247.0 cm/s TR Peak Gradient 24.4 mmHg TR Mean Velocity 188.0 cm/s TR Mean Gradient 16.1 mmHg TR Velocity Time Integral 48.2 cm TV Peak E Velocity 89.0 cm/s Right Atrial Pressure 3.0 mmHg Pulmonary Artery Systolic Pressu 27.4 mmHg PV Peak Velocity 123.0 cm/s RV Ejection Time 0.3 s FINDINGS Left Ventricle Normal LV size ejection fraction of 65%. No gross wall motion normalities noted. Grade III/IV diastolic dysfunction (restrictive filling pattern), severely elevated filling pressures. Right Ventricle The right ventricle is normal in size and function. Right Atrium Possibly of normal size Left Atrium Possibly of normal size Mitral Valve Thickened mitral valve with heavy mitral annular calcification. The peak velocity across the valve was 2.7 m/s with a peak gradient of 30 and a mean gradient of 18 mmHg. Aortic Valve Mild aortic valve stenosis, mean gradient 23.2 mmHg, GISELLE 1.7 cm squared. Tricuspid Valve No gross abnormalities noted Pulmonic Valve Pulmonic valve not well visualized. Pericardium Normal pericardium without effusion. Aorta Normal ascending aorta dimension. IVC Inferior vena cava not visualized. CONCLUSIONS Normal LV size ejection fraction of 65%. No gross wall motion normalities noted. Grade III/IV diastolic dysfunction (restrictive filling pattern), severely elevated filling pressures. Thickened mitral valve with heavy mitral annular calcification. The peak velocity across the valve was 2.7 m/s with a peak gradient of 30 and a mean gradient of 18 mmHg. Mild aortic valve stenosis, mean gradient 23.2 mmHg, GISELLE 1.7 cm squared. There is no pericardial effusion. There are no intracardiac masses. Compared to the study from 02/18/2019, there is worsening of the LV diastolic dysfunction and aortic valve stenosis Dr Luis Carlisle MD FAC (Electronically Signed) Final Date: 29 Mar 2024 20:49 S
[2024-03-29 13:53] LABS: Glucose Point of Care 177 mg/dL (70-110)
[2024-03-29] MEDS: FUROsemide 10 mg/mL SDV 10mL 60 MG IVP ×2 (13:56→23:56)
[2024-03-29] MEDS: insulin lispro 100 unit/1 mL SUBCUT ×2 (13:56→16:52)
[2024-03-29] MEDS: ipratropium-albuterol 3 mL Neb INHALATION ×2 (15:21→21:31)
[2024-03-29 16:54] LABS: Glucose Point of Care 166 mg/dL (70-110)
[2024-03-29 17:26] LABS: Vitamin B12 326 pg/mL (232-1245)
[2024-03-29 18:56] LABS: Lactic Sepsis W/Reflex 3.2 mmol/L (0.5-2.2)
[2024-03-29 20:20] LABS: Reflex Lactate Order REFLEX LACTIC ORDERD
[2024-03-29 21:06] LABS: Glucose Point of Care 211 mg/dL (70-110)
[2024-03-29 22:05] LABS: Lactic Acid level (Lactate) 2.5 mmol/L (0.5-2.2)
[2024-03-30] VITALS (17 sets, daily range): BP systolic 109–128; BP diastolic 52–78; PULSE 77–106; RESP 13–25; TEMP 36.3–37.1; O2SAT 92–97
[2024-03-30] MEDS: ipratropium-albuterol 3 mL Neb INHALATION ×4 (03:09→20:05)
[2024-03-30 04:30] LABS: Basophils % 0.1 %; Hematocrit 53.5 % (37-53); Lymphocytes % 22.5 %; Mean Corpuscular HGB Conc 31.2 g/dL (30-55); Mean Corpuscular Hemoglobin 29.8 pg (27-33); Mean Corpuscular Volume 95.5 fl (82-101); Mean Platelet Volume 9.9 fL (7.4-10.4); Monocytes # 0.8 10^3/uL (0.2-0.9); Monocytes % 8.7 %; Neutrophils # 6.08 10^3/uL (1.8-7.7); Neutrophils % 68.3 %; Nucleated Red Blood Cells % 0 %; Platelet Count 184 10^3/cmm (157-399)
[2024-03-30 04:45] LABS: Anion Gap 13.6 (5-19); Blood Urea Nitrogen 20 mg/dL (8-23); Calcium 8.3 mg/dL (8.5-10.5); Carbon Dioxide 30 mmol/L (22-29); Chloride 96 mmol/L (98-107); Creatinine Clr Calc Pharmacy 59.0254; Glomerular Filtration Rate 51.2 mL/min (90-130); Glucose 169 mg/dL (65-115); Magnesium 2.3 mg/dL (1.7-2.3); Osmolality Calculated 289 mOsm/kg (285-295); Phosphorus 2.4 mg/dL (2.5-4.5); Potassium 3.6 mmol/L (3.5-5.1); Sodium 136 mmol/L (136-145)
[2024-03-30 06:16] LABS: Glucose Point of Care 160 mg/dL (70-110)
[2024-03-30] MEDS: insulin lispro 100 unit/1 mL SUBCUT ×2 (07:51→12:01)
[2024-03-30] MEDS: potassium chloride ER 10 mEq Tablet 20 MEQ PO (07:51)
[2024-03-30] MEDS: cefTRIAXone 1,000 MG in sodium chloride 0.9% (plus) 50 ML 100 MG IV (07:52)
[2024-03-30] MEDS: azithromycin 250 mg Tablet 500 MG PO (07:52)
[2024-03-30] MEDS: metoprolol tartrate 25 mg Tablet PO (07:52)
[2024-03-30] MEDS: clopidogrel 75 mg Tablet PO (07:52)
[2024-03-30] MEDS: sennosides-docusate Tablet 1 TAB PO (07:53)
[2024-03-30 10:48] LABS: Glucose Point of Care 182 mg/dL (70-110)
[2024-03-30] MEDS: FUROsemide 10 mg/mL SDV 10mL 60 MG IVP (12:01)
[2024-03-30 16:25] LABS: Glucose Point of Care 116 mg/dL (70-110)
--- NOTE | 2024-03-30 17:55 | P.PN_ITS ---
Subjective 2 Subjective: Patient feeling much better He wanted to go home I have asked him to stay until Monday Negative fluid balance Potassium to be replenished Currently on 2 to 3 L cannula Vitals/I&O/Wt Last Vital Signs Temp 98.0 F 03/29/24 20:00 Pulse 107 H 03/29/24 20:00 Resp 19 H 03/29/24 20:00 BP 160/88 03/29/24 20:00 Pulse Ox 91 03/29/24 20:00 O2 Del Method Nasal Cannula 03/29/24 20:00 O2 Flow Rate 2 03/29/24 15:21 03/29/24 03/29/24 03/29/24 06:59 14:59 22:59 Intake Total 1350 / 1350 Output Total 700 / 700 2000 / 2700 Balance 650 / 650 -2000 / -1350 Weight last 48 hrs Weight 122.697 kg Weight 122.47 kg Physical Exam 2 Narrative: Signs of fluid load present Distended abdomen Nonfocal neuroexam S1, S2 Currently on 4 L Pleasant cooperative GCS 15 Lower extremity edema present 2+ Data 03/30/24 03:50 03/30/24 03:50 Micro: Microbiology 03/29/24 10:35 Blood Culture - Preliminary Blood SPECIMEN COLLECTED 03/29/24 10:30 Blood Culture - Preliminary Blood SPECIMEN COLLECTED A&P Assessment and plan (1) Acute exacerbation of CHF (congestive heart failure): (2) Hypertensive urgency: (3) Nicotine addiction: (4) Acute respiratory failure with hypoxia: (5) COPD exacerbation: (6) Leg swelling: Plan Acute diastolic CHF exacerbation Give IV Lasix Acute hypoxia Currently in heart failure with pneumonia Start antibiotics and Lasix Increased work of breathing may benefit from BiPAP overnight if needed Otherwise uses 2 L of oxygen for sleep apnea at nighttime Sepsis related to pneumonia Judicious use of IV fluids, patient currently is in heart failure as well Criteria met with fever tachypnea tachycardia high lactic acid Start antibiotics to take blood culture, repeat lactic acid Goals of care discussed with the patient he is DNR/DNI Stating that he does not have medical DPOA, in case something happens he wants his sisters to be notified Acute on chronic kidney disease likely cardiorenal Cardiac diet Hypertensive urgency adjust antibiotic regimen Lactic acidosis/related to sepsis anticipating improvement Attestations 2 Medical Necessity Statement*: Possible discharge over the weekend versus Monday Diagnoses Acute exacerbation of CHF (congestive heart failure) I50.9 Hypertensive urgency I16.0 Nicotine addiction F17.200 Acute respiratory failure with hypoxia J96.01 COPD exacerbation J44.1 Leg swelling M79.89
[2024-03-30 20:26] LABS: Glucose Point of Care 103 mg/dL (70-110)
[2024-03-31] VITALS (16 sets, daily range): BP systolic 102–156; BP diastolic 58–86; PULSE 81–96; RESP 16–25; TEMP 36.6–37.1; O2SAT 86–96
[2024-03-31] MEDS: ipratropium-albuterol 3 mL Neb INHALATION ×4 (00:46→21:50)
[2024-03-31] MEDS: FUROsemide 10 mg/mL SDV 10mL 60 MG IVP ×2 (00:54→13:24)
[2024-03-31] MEDS: acetaminophen 325 mg Tablet 650 MG PO ×2 (01:43→09:51)
[2024-03-31 07:11] LABS: Glucose Point of Care 93 mg/dL (70-110)
[2024-03-31] MEDS: metoprolol tartrate 25 mg Tablet PO (09:51)
[2024-03-31] MEDS: potassium chloride ER 20 mEq Tablet 40 MEQ PO (09:51)
[2024-03-31] MEDS: cefTRIAXone 1,000 MG in sodium chloride 0.9% (plus) 50 ML 100 MG IV (09:51)
[2024-03-31] MEDS: sennosides-docusate Tablet 1 TAB PO (09:51)
[2024-03-31] MEDS: azithromycin 250 mg Tablet 500 MG PO (09:51)
[2024-03-31] MEDS: potassium chloride ER 10 mEq Tablet 20 MEQ PO (09:52)
[2024-03-31] MEDS: clopidogrel 75 mg Tablet PO (09:52)
--- NOTE | 2024-03-31 10:20 | PM.DCS ---
Discharge Providers Date of Admission: 03/29/24 11:55 Date of Discharge: March 31, 2024 Attending Provider at Admission: Ana Ríos MD Attending Provider at Discharge: Ana Ríos MD Primary Care Provider: Kristan Martin NP Diagnoses at Discharge Discharge Diagnosis (1) Acute exacerbation of CHF (congestive heart failure): Status: Acute (2) Hypertensive urgency: Status: Acute (3) Nicotine addiction: Status: Acute (4) Acute respiratory failure with hypoxia: Status: Acute (5) COPD exacerbation: Status: Acute (6) Leg swelling: Status: Acute Reason for Visit Reason for Visit: difficulty breathing Hospital Course Hospital Course 62-year-old male who was admitted for management evaluation of diastolic CHF exacerbation, EF is preserved he does have mild aortic stenosis, patient is an active smoker does not watch his sodium or fluid intake, he was diuresed aggressively with 60 IV Lasix every 12 hours, at the time of discharge he is -4 L balance patient at baseline uses 2 to 3 L of oxygen at home, I have counseled him to quit smoking and use oxygen and keep taking diuretics I will switch him from Lasix to Bumex 1 mg twice a day for next 3 days and then he can stay on 1 mg daily along potassium supplementation Physical Exam Narrative: Pleasant & cooperative Nonfocal neuroexam GCS 15 Currently on 2 L Abdomen soft S1, S2 Discharge Data Studies Completed and Pending Completed Studies During Hospitalization Category Date Time Status XR chest 1V portable [id number] Stat Exams 03/29/24 10:03 Completed CV. echo complete* [id number] Routine Ultrasound 03/29/24 12:58 Completed Pending at discharge Category Date Time Status Blood Culture Stat Lab 03/29/24 10:35 Results Radiology Impressions Chest X-Ray 03/29/24 10:03 Impression: 1. Minimal bilateral lower lobe opacities which may represent atelectasis and/or minimal pneumonia. 2. Atherosclerosis. Laboratory Results WBC 8.90 10^3/uL (3.29-11.43) 03/30/24 03:50 RBC 5.60 10^6/uL (3.85-5.65) 03/30/24 03:50 Hgb 16.70 g/dL (11.27-16.99) 03/30/24 03:50 Hct 53.5 % (37-53) H 03/30/24 03:50 MCV 95.5 fl (82-101) 03/30/24 03:50 MCH 29.8 pg (27-33) 03/30/24 03:50 MCHC 31.2 g/dL (30-55) 03/30/24 03:50 RDW 15.0 % (12.1-15.1) 03/30/24 03:50 Plt Count 184 10^3/cmm (157-399) 03/30/24 03:50 MPV 9.9 fL (7.4-10.4) 03/30/24 03:50 Neut % (Auto) 68.3 % 03/30/24 03:50 Lymph % (Auto) 22.5 % 03/30/24 03:50 [place] % (Auto) 8.7 % 03/30/24 03:50 Eos % (Auto) 0.0 % 03/30/24 03:50 Baso % (Auto) 0.1 % 03/30/24 03:50 Neut # (Auto) 6.08 10^3/uL (1.8-7.7) 03/30/24 03:50 Lymph # (Auto) 2.0 10^3/uL (0.8-4.8) 03/30/24 03:50 [place] # (Auto) 0.8 10^3/uL (0.2-0.9) 03/30/24 03:50 Eos # (Auto) 0.0 10^3/uL (0.0-0.8) 03/30/24 03:50 Baso # (Auto) 0.0 10^3/uL (0.0-0.1) 03/30/24 03:50 Nucleated RBC % (auto) 0 % 03/30/24 03:50 Nucleated RBCs # 0.0 /100WBC 03/30/24 03:50 PT 14.80 SECONDS (12.1-14.9) 03/29/24 10:30 INR 1.12 (0.8-1.2) 03/29/24 10:30 D-Dimer 0.48 ug/mLFEU (0-0.59) 03/29/24 10:30 Specimen Type Arterial 03/29/24 10:15 Sample Site Radial, left 03/29/24 10:15 ABG pH 7.38 (7.35-7.45) 03/29/24 10:15 ABG pCO2 48.2 mmHg (35-45) H 03/29/24 10:15 ABG pO2 64.2 mmHg (80.0-100.0) L 03/29/24 10:15 ABG PO2/FiO2 Ratio 0 03/29/24 10:15 ABG HCO3 28.2 mmol/L (22-26) H 03/29/24 10:15 ABG Base Excess 2.0 mmol/L (-2.0-2.0) 03/29/24 10:15 Sam Test Pos 03/29/24 10:15 Hematocrit 53.2 % (42-52) H 03/29/24 10:15 O2 Delivery Device Nc 03/29/24 10:15 O2 Liters/Min 2.0 % 03/29/24 10:15 FiO2 28.0 % 03/29/24 10:15 Trust Evaluation Supervisor ID Cak 03/29/24 10:15 Sodium 136 mmol/L (136-145) 03/30/24 03:50 Potassium 3.6 mmol/L (3.5-5.1) 03/30/24 03:50 Chloride 96 mmol/L (98-107) L 03/30/24 03:50 Carbon Dioxide 30 mmol/L (22-29) H 03/30/24 03:50 Anion Gap 13.6 (5-19) 03/30/24 03:50 BUN 20 mg/dL (8-23) 03/30/24 03:50 Creatinine 1.4 mg/dL (0.7-1.2) H 03/30/24 03:50 GFR Calculation 51.2 mL/min (90-130) L 03/30/24 03:50 Glucose 169 mg/dL (65-115) H 03/30/24 03:50 POC Glucose 93 mg/dL (70-110) 03/31/24 06:52 Calculated Osmolality 289 mOsm/kg (285-295) 03/30/24 03:50 Lactic Acid 3.2 mmol/L (0.5-2.2) H 03/29/24 18:28 Lactic Acid (Sepsis) 2.5 mmol/L (0.5-2.2) H 03/29/24 21:21 Calcium 8.3 mg/dL (8.5-10.5) L 03/30/24 03:50 Phosphorus 2.4 mg/dL (2.5-4.5) L 03/30/24 03:50 Magnesium 2.3 mg/dL (1.7-2.3) 03/30/24 03:50 Total Bilirubin 0.5 mg/dL (0.15-1.2) 03/29/24 10:30 AST 27 U/L (0-40) 03/29/24 10:30 ALT 33 U/L (0-41) 03/29/24 10:30 Alkaline Phosphatase 64 U/L (40-130) 03/29/24 10:30 NT-Pro-B Natriuret Pep 545 pg/mL (0-125) H 03/29/24 10:30 Total Protein 7.6 g/dL (6.6-8.7) 03/29/24 10:30 Albumin 3.8 g/dL (3.5-5.2) 03/29/24 10:30 Globulin 3.8 g/dL (1.3-4.6) 03/29/24 10:30 Vitamin B12 326 pg/mL (232-1245) 03/29/24 10:30 Influenza Type A Ag negative (Negative) 03/29/24 11:59 Influenza Type B Ag negative (Negative) 03/29/24 11:59 SARS-CoV-2 Ag (Rapid) negative (Negative) 03/29/24 10:39 Vitals Last Vital Signs Temp 98.6 F 03/31/24 04:00 Pulse 94 03/31/24 08:47 Resp 16 03/31/24 08:39 BP 156/86 03/31/24 04:00 Pulse Ox 93 03/31/24 08:39 O2 Del Method Nasal Cannula 03/31/24 08:39 O2 Flow Rate 2 03/31/24 08:39 Discharge Plan Discharge Patient Disposition: Home Condition: Stable Prescriptions: New bumetanide 1 mg tablet 1.5 mg PO DAILY Qty: 90 4RF amoxicillin-pot clavulanate 875-125 mg tablet 1 tab PO BID Qty: 10 0RF potassium chloride 10 mEq tablet extended release 10 meq PO DAILY Qty: 30 3RF Continued rosuvastatin [Crestor] 10 mg tablet 10 mg PO QDAY esomeprazole magnesium [Nexium 24HR] 20 mg capsule,delayed release(DR/EC) 20 mg PO QDAY clopidogrel 75 mg tablet 75 mg PO QDAY nitroglycerin [Nitrostat] 0.4 mg tablet, sublingual 0.4 mg SUBLINGUAL Q5M PRN (Reason: Chest Pain) metoprolol tartrate 25 mg tablet 25 mg PO DAILY albuterol sulfate [Proventil HFA] 90 mcg/actuation HFA aerosol inhaler 1 inh inhalation Q6H PRN (Reason: shortness of breath or wheezing) Qty: 6.7 2RF ipratropium-albuterol 0.5 mg-3 mg(2.5 mg base)/3 mL solution for nebulization 3 ml INHALATION QID metformin 500 mg tablet extended release 24 hr 500 mg PO QPM Discontinued furosemide 40 mg tablet 40 mg PO DAILY 30 Days Qty: 30 3RF potassium chloride 10 mEq tablet extended release 10 meq PO DAILY 30 Days Qty: 90 3RF Discharge Orders: Discharge Order (Routine); Ordered 03/31/24 Ordered By: Ana Ríos Referrals: Kristan Martin DEVELOPMENT SPEC [Primary Care Provider] - Discharge Diet: Cardiac Discharge Activity: Increase activity as tolerated Patient Instructions: Heart Failure (DC), CHF Stoplight, Opioid Safety Activity Restrictions/Additional Instructions: I have changed your Lasix to another diuretic called Bumex which is better absorption from the gut You will take 1.5 tablets a day along potassium supplementation I have also given you 5 days of antibiotics, please quit smoking, use oxygen daily basis and use your inhalers Discharge Attestations Time Spent in Discharge Care*: greater than 30 min Quality Metrics Clinical Quality Measures [ No reported AMI, CVA or VTE this stay] Coding Level of Care Code Acute Code for g Fwd Diagnoses Acute exacerbation of CHF (congestive heart failure) I50.9 Hypertensive urgency I16.0 Nicotine addiction F17.200 Acute respiratory failure with hypoxia J96.01 COPD exacerbation J44.1 Leg swelling M79.89
[2024-03-31 11:23] LABS: Glucose Point of Care 132 mg/dL (70-110)
--- NOTE | 2024-03-31 12:07 | PC.NURSE ---
fax paperworks to [facility]. calling [facility] now to talk to telephone service representative.
--- NOTE | 2024-03-31 13:47 | PC.NURSE ---
called [facility] again at [phone] about ETA of his oxygen tank/portable due to pt needing a transport ride as well. Ms Barnard from [employer] stated [employer] keyboard operator rep will be calling me again about the ETA.
--- NOTE | 2024-03-31 15:15 | PC.NURSE ---
called [employer] again the 4th time to know the Eta of pt's ordered oxygen tank and they said the client relationship consultantcall center nurse [place] in [place] is not answering their calls? They are working and following up this issue and will try to call us back.
--- NOTE | 2024-03-31 15:30 | PC.NURSE ---
[facility] called back and said the rep will be coming t=in about 10-20 mins to bring his oxygen. pt notified. we will now set up a transportation.
--- NOTE | 2024-03-31 16:38 | PC.NURSE ---
[facility] now just brought pt's portable oxygen tank in room. Setting up his transportation now thru [facility]. Talked to Cammie, trip # [phone].
[2024-03-31 17:06] LABS: Glucose Point of Care 109 mg/dL (70-110)
--- NOTE | 2024-03-31 17:49 | PC.NURSE ---
[facility] transport called back and notified staff that they do not have a ride for this pt tonight. If it is possible the patient can be transported tomorrow morning for a new trio#. Will call hospitalist and house sup. pt stated he has [facility]/medicaid insurance.
--- NOTE | 2024-03-31 18:44 | PM.PN ---
Vitals/I&O/Wt Last Vital Signs Temp 98.3 F 03/31/24 16:00 Pulse 90 03/31/24 16:00 Resp 25 H 03/31/24 16:00 BP 116/64 03/31/24 16:00 Pulse Ox 95 03/31/24 16:00 O2 Del Method Nasal Cannula 03/31/24 16:00 O2 Flow Rate 3 03/31/24 16:00 03/31/24 03/31/24 03/31/24 06:59 14:59 22:59 Intake Total 1660 / 1710 632 / 632 Output Total 2350 / 4775 1250 / 1250 690 / 1940 Balance -690 / -3065 -618 / -618 -690 / -1308 Weight last 48 hrs Weight 124.284 kg Weight 124.556 kg Weight 100.924 kg Data 03/30/24 03:50 03/30/24 03:50 Coding Level of Care Code Acute Code for Chg Fwd
[2024-03-31 20:02] LABS: Glucose Point of Care 115 mg/dL (70-110)
[2024-04-01] VITALS: BP 109/69; PULSE 94; RESP 23; TEMP 36.7; O2SAT 94
[2024-04-01] MEDS: FUROsemide 10 mg/mL SDV 10mL 60 MG IVP (01:00)
[2024-04-01] MEDS: lanolin oint 7 gm 1 APPLIC TOPICAL (01:03)
[2024-04-01 04:00] VITALS: BP 124/68; PULSE 96; RESP 18; TEMP 36.7; O2SAT 94
[2024-04-01 06:40] LABS: Glucose Point of Care 104 mg/dL (70-110)
--- NOTE | 2024-04-01 07:03 | PC.NURSE ---
Just received a call from Shannon with [facility] and she said that she has a ride for Brigitte Giovany from [facility] who will be here in 8 minutes to take him home.
--- NOTE | 2024-04-01 07:40 | PC.NURSE ---
While receiving report, I received a call from GET (Shannon) and she said that the pt will have a ride with [employer] and that they will be here in 8 minutes to get the pt. DARRIUS Rucker notified and took pt out to his ride via w/c. Pt never seen by this scientific technical writer.
[2024-04-01 07:46] VITALS: BP 124/68; PULSE 96; RESP 18; TEMP 36.7; O2SAT 94
--- NOTE | 2024-04-01 09:09 | PC.NURSE ---
Discharge Note Patient discharged to [home] via [w/c to [facility] ride] accompanied by [car tender stock driver]. Discharge instructions reviewed with patient and/or patient account representative. Mobile pharmacy medications and/or prescriptions provided. Belongings/home medications returned.
== END 2024-04-01 07:49 | disposition home or self-care (01) | DRG 871 ==
LOC: ER 11:35 → CSU 11:55
PROVIDERS: Admitting Provider Internal Medicine; Emergency Provider Emergency Medicine; PCP Nurse Practitioner Family; Visit Provider Internal Medicine
DX: A41.9 Sepsis, unspecified organism (principal); I50.31 Acute diastolic (congestive) heart failure; J18.9 Pneumonia, unspecified organism; J96.01 Acute respiratory failure with hypoxia; J44.1 Chronic obstructive pulmonary disease with (acute) exacerbation; J44.0 Chronic obstructive pulmonary disease with (acute) lower respiratory infection; I13.0 Hypertensive heart and chronic kidney disease with heart failure and stage 1 through stage 4 chronic kidney disease, or unspecified chronic kidney disease; N17.9 Acute kidney failure, unspecified; R65.20 Severe sepsis without septic shock; I16.0 Hypertensive urgency; I25.10 Atherosclerotic heart disease of native coronary artery without angina pectoris; E78.5 Hyperlipidemia, unspecified; F17.200 Nicotine dependence, unspecified, uncomplicated; N18.9 Chronic kidney disease, unspecified; Z66 Do not resuscitate; K21.9 Gastro-esophageal reflux disease without esophagitis; G47.30 Sleep apnea, unspecified; I35.0 Nonrheumatic aortic (valve) stenosis; Z79.02 Long term (current) use of antithrombotics/antiplatelets; Z11.52 Encounter for screening for COVID-19; Z99.81 Dependence on supplemental oxygen; I25.2 Old myocardial infarction
CPT/HCPCS: 36415; 36416; 36600; 71045; 80048; 80053; 82607; 82803; 82962; 83605; 83735; 83880; 84100; 85025; 85378; 85610; 87040; 87426; 87804; 93005; 93306; 94640; 94760; 96365; 96367; 96372; 96375; 96376; 99285; J0456; J0696; J1815; J1940; J2919; J7030; J7050; J7613; Q0144

== ENCOUNTER → 2024-05-02 14:08 | Outpatient (BNVA) | payer MEDICARE, MEDICAID, SELFPAY | PROVIDERS: PCP Nurse Practitioner Family; Visit Provider Podiatrist Foot & Ankle Surgery | DX: L60.0 Ingrowing nail (principal); L60.3 Nail dystrophy; I73.9 Peripheral vascular disease, unspecified; Z79.84 Long term (current) use of oral hypoglycemic drugs; E11.69 Type 2 diabetes mellitus with other specified complication | CPT/HCPCS: 11721; 99203 ==

== ENCOUNTER → 2024-12-12 14:39 | Outpatient (BNVA) | payer MEDICARE, MEDICAID, SELFPAY | PROVIDERS: PCP Nurse Practitioner Family; Visit Provider Internal Medicine Cardiovascular Disease | DX: R07.9 Chest pain, unspecified (principal) | CPT/HCPCS: 93005 ==

== ENCOUNTER → 2025-01-15 13:26 | Outpatient (BNVA) | payer MEDICARE, MEDICAID, SELFPAY | PROVIDERS: PCP Nurse Practitioner Family; Referring Provider Nurse Practitioner Family; Visit Provider Nurse Practitioner Family | DX: L30.4 Erythema intertrigo (principal); L85.8 Other specified epidermal thickening; L82.1 Other seborrheic keratosis; L72.0 Epidermal cyst; L82.0 Inflamed seborrheic keratosis; L29.89 Other pruritus; D48.5 Neoplasm of uncertain behavior of skin; L57.0 Actinic keratosis | CPT/HCPCS: 11102; 17000; 17110; 99204 ==

== ENCOUNTER 2025-01-21 10:30 | Outpatient (CLI) | payer MEDICARE, MEDICAID, SELFPAY ==
--- NOTE | 2025-01-21 11:15 | USCV_ITS ---
Jose Adair Age: 64 Gender: M : 1960 Exam Date: 01/21/2025 10:49 Ordering Phys: Ana Reynolds MD ([email or web address]) Technologist: STELLA Exam Location: [facility] Indication: Murmur BP: 140 / 80 HR: 90 Rhythm: Sinus Technical Quality: Adequate MEASUREMENTS (Male / Female) Normal Values 2D ECHO LVOT Diameter 2.0 cm LV Ejection Fraction MOD 4C 57.8 % LV Ejection Fraction MOD 2C 67.4 % LV Ejection Fraction 2C AL 69.0 % LA Diameter 3.5 cm RA Systolic Volume 4C AL 33.3 ml RA Systolic Volume 4C MOD 31.8 ml LA Sys Volume AL 58.1 cm cubed LA Sys Volume Index AL 23.8 cm cubed/m squared Aorta at Sinotubular Diameter 2.9 cm IVC Diameter 1.9 cm M-MODE LA Ao Ratio MM 1.2 AV Cusp Separation MM 1.4 cm DOPPLER AV Peak Velocity 281.4 cm/s LVOT Peak Velocity 91.0 cm/s AV Area Cont Eq vti 1.1 cm squared AV Area Cont Eq pk 1.0 cm squared MV Peak Velocity 265.0 cm/s MV Area PHT 2.7 cm squared Mitral E to A Ratio 1.1 TR Peak Velocity 220.0 cm/s TR Peak Gradient 19.4 mmHg TV Peak E Velocity 108.0 cm/s PV Peak Velocity 98.0 cm/s FINDINGS Left Ventricle Normal left ventricular size, systolic function and wall thickness, with no regional wall motion abnormalities. Left ventricular ejection fraction is estimated at 60 %. Grade II/IV diastolic dysfunction, moderately elevated filling pressures. Grade II/IV diastolic dysfunction, moderately elevated filling pressures. Right Ventricle The right ventricle is normal in size and function. Right Atrium The right atrium is normal in size. Left Atrium The left atrium is normal in size. Mitral Valve Severely thickened mitral valve. Severe mitral annular calcification. Trace mitral valve regurgitation. Aortic Valve Ecbhpajh-te-fykxtf aortic valve stenosis. Moderate aortic valve stenosis, mean gradient 18.5 mmHg, GISELLE 1.1 cm squared. Mild aortic valve regurgitation. Tricuspid Valve Structurally normal tricuspid valve without significant stenosis or regurgitation. Pulmonary artery systolic pressure is normal. Pulmonic Valve Structurally normal pulmonic valve without significant stenosis. There is no pulmonic regurgitation. Pericardium Normal pericardium without effusion. Aorta Normal ascending aorta dimension. IVC The inferior vena cava appears normal. CONCLUSIONS Normal left ventricular size, systolic function and wall thickness, with no regional wall motion abnormalities. Left ventricular ejection fraction is estimated at 60 %. Grade II/IV diastolic dysfunction, moderately elevated filling pressures. Grade II/IV diastolic dysfunction, moderately elevated filling pressures. Szowntsp-ld-risfuc aortic valve stenosis. Moderate aortic valve stenosis, mean gradient 18.5 mmHg, GISELLE 1.1 cm squared. Mild aortic valve regurgitation. There is no pericardial effusion. Right atrial pressure is around 10 mm of mercury. Ana Reynolds MD (Electronically Signed) Final Date: 22 January 2025 19:32 S
== END 2025-01-21 10:31 | disposition home or self-care (01) ==
LOC: RAD 10:34
PROVIDERS: PCP Nurse Practitioner Family; Visit Provider Internal Medicine Cardiovascular Disease
DX: R01.1 Cardiac murmur, unspecified (principal); R93.1 Abnormal findings on diagnostic imaging of heart and coronary circulation; I34.81 Nonrheumatic mitral (valve) annulus calcification; I35.0 Nonrheumatic aortic (valve) stenosis; I35.1 Nonrheumatic aortic (valve) insufficiency
CPT/HCPCS: 93306

== ENCOUNTER 2025-05-28 13:07 | Outpatient (CLI) | payer MEDICARE, MEDICAID, SELFPAY ==
--- NOTE | 2025-05-28 13:13 | CT_ITS ---
WS: [id number] LDCT LUNG CANCER SCREENING TECHNIQUE: Noncontrast CT of the chest with coronal and sagittal reformatted images. CLINICAL INFORMATION: HX OF TOBACCO USE COMPARISON: 06/07/2023 DLP: 173.32 mGy.cm DIvol: Mean CTDIvol: 4.30 (mGy) All CT scans at [facility] use at least one of these dose optimization techniques: automated exposure control; mA and/or kV adjustment per patient size (includes targeted exams where dose is matched to clinical indication); or iterative reconstruction. FINDINGS: Mild interstitial thickening in both lungs similar to previous. No new suspicious pulmonary parenchymal abnormalities. Slight hazy opacity RIGHT upper lobe is unchanged. Small nodular area of scarring LEFT upper lobe posteriorly measuring 5 mm. Aortic calcification. Moderate esophageal hiatal hernia.Thoracic kyphosis. No mediastinal or hilar lymphadenopathy. Coronary calcification. Adrenal glands are normal. Hypertrophic changes thoracic spine. CT/CT lung screening [id number] IMPRESSION: LUNG-RADS: 2-Benign Appearance or Behavior FOLLOW UP: 12 Month: Continue annual screening with LDCT
== END 2025-05-28 13:08 | disposition home or self-care (01) ==
LOC: RAD 13:08
PROVIDERS: PCP Nurse Practitioner Family; Visit Provider Nurse Practitioner Family
DX: Z12.2 Encounter for screening for malignant neoplasm of respiratory organs (principal); I10 Essential (primary) hypertension; E78.2 Mixed hyperlipidemia; I25.10 Atherosclerotic heart disease of native coronary artery without angina pectoris; Z87.891 Personal history of nicotine dependence
CPT/HCPCS: 71271

== ENCOUNTER → 2025-06-25 13:26 | Outpatient (BNVA) | payer MEDICARE, MEDICAID, SELFPAY | PROVIDERS: PCP Nurse Practitioner Family; Visit Provider Nurse Practitioner Family | DX: L30.4 Erythema intertrigo (principal); L85.8 Other specified epidermal thickening; L72.0 Epidermal cyst; L82.0 Inflamed seborrheic keratosis; L29.89 Other pruritus; R20.9 Unspecified disturbances of skin sensation; R20.8 Other disturbances of skin sensation; D48.5 Neoplasm of uncertain behavior of skin | CPT/HCPCS: 17110; 69100; 99214 ==

== ENCOUNTER → 2025-06-30 14:19 | Outpatient (BNVA) | payer MEDICARE, MEDICAID, SELFPAY | PROVIDERS: PCP Nurse Practitioner Family; Visit Provider Internal Medicine Cardiovascular Disease | DX: I35.0 Nonrheumatic aortic (valve) stenosis (principal); I25.10 Atherosclerotic heart disease of native coronary artery without angina pectoris; I73.9 Peripheral vascular disease, unspecified; F17.200 Nicotine dependence, unspecified, uncomplicated | CPT/HCPCS: 99214 ==

== ENCOUNTER 2025-07-04 09:38 | Outpatient (CLI) | payer MEDICARE, MEDICAID, SELFPAY ==
[2025-07-04 10:25] LABS: Hematocrit 53.9 % (37-53); Hemoglobin 16.90 g/dL (11.27-16.99); Mean Corpuscular HGB Conc 31.4 g/dL (30-55); Mean Corpuscular Hemoglobin 28.7 pg (27-33); Mean Corpuscular Volume 91.7 fl (82-101); Nucleated Red Blood Cells % 0 %; Platelet Count 210 10^3/cmm (157-399); Red Blood Count 5.88 10^6/uL (3.85-5.65); White Blood Count 9.46 10^3/uL (3.29-11.43)
[2025-07-04 10:38] LABS: INR 0.90 (0.83-1.21)
[2025-07-04 10:42] LABS: Anion Gap 15.2 (5-19); Blood Urea Nitrogen 22 mg/dL (8-23); Calcium 9.6 mg/dL (8.5-10.5); Carbon Dioxide 32 mmol/L (22-29); Chloride 96 mmol/L (98-107); Glucose 174 mg/dL (65-115); Osmolality Calculated 296 mOsm/kg (285-295); Potassium 4.2 mmol/L (3.5-5.1); Sodium 139 mmol/L (136-145)
== END 2025-07-04 09:39 | disposition home or self-care (01) ==
LOC: LAB 09:41
PROVIDERS: PCP Nurse Practitioner Family; Visit Provider Internal Medicine Cardiovascular Disease
DX: I25.10 Atherosclerotic heart disease of native coronary artery without angina pectoris (principal); I73.9 Peripheral vascular disease, unspecified; I35.0 Nonrheumatic aortic (valve) stenosis; R58 Hemorrhage, not elsewhere classified
CPT/HCPCS: 36415; 80048; 85025; 85610

== ENCOUNTER 2025-07-31 08:30 | Outpatient (CLI) | payer MEDICARE, MEDICAID, SELFPAY ==
[2025-07-31] VITALS (10 sets, daily range): BP systolic 115–138; BP diastolic 77–95; PULSE 78–95; RESP 13–23; TEMP 36.1–37.2; O2SAT 95–98; BMI 44.4
--- NOTE | 2025-07-31 09:00 | XACV_ITS ---
Wt: 121 kg BSA: 2.42 m2 Gender: Male : 1960 Any Known Allergies: Benadryl Exam Priority: Routine Procedure(s): Procedure Description: Diagnostic procedure Procedure Description: PCI procedure Procedure Description: Drug Eluting Coronary Stent Procedure Description: PTCA Procedure Description: Miscellaneous Procedure Description: ACT Procedure Description: Coronary Angiography Diagnostic Cath Status: Elective Diagnostic Findings * Indication: Abn stresss test, worsening of angina, unexplained shortness of breath. * Left Main has no disease. * Circumflex has no disease. * Right Coronary Artery has no disease. * Proximal Left Anterior Descending: significant 80% stenosis, SUSSY: 3 flow. * Coronary angiography shows right dominance. PCI Indication: New Onset Angina <= 2 months Interventional Findings * Proximal Left Anterior Descendin% stenosis treated with a AB TREK 3.00X12 RX BALLOON, MDLaureano R ROBERT 4.0X12 RONEY, AB TREK 4.50X12 RX BALLOON, AB TREK 3.00X08 RX BALLOON, MUKUL R ROBERT 4.0X12 RONEY, and MUKUL JACOB EUPHORA RX 4.16A47HU BALLOON. 0% residual stenosis, SUSSY: 3 flow. Conclusions 1. There is significant coronary artery disease with one vessel disease. 2. Proximal Left Anterior Descending was treated with a Balloon, Drug Eluting Stent, Balloon, Balloon, Drug Eluting Stent, and Balloon. Recommendations * 1-Return to inpatient for close monitoring and routine cath care 2-Risk factor modification for secondary prevention 3-Statin and aspirin 81 mg life-long, if tolerated 4-Patient was pre-loaded with 600 mg of Plavix, continue Plavix 75mg p.o. daily for at least one year. We will assess at the end of one year again to continue if further or not 5-Continue optimal medical management 6-Follow up with Dr. Reynolds in four weeks and your primary care in 10 days. Pressures Phase:Rest AO : / ( 0 ) @ 12:38:00 PM 123 / 83 ( 101 ) @ 12:39:00 PM 114 / 70 ( 92 ) @ 12:49:00 PM 107 / 98 ( 102 ) @ 1:30:00 PM Clinical Evaluation EBL: 5mL-10mL Procedural Details Admit Source: Out Patient. Pre-Procedure Time Out. Identified patient by full name and date of as verbalized by the patient/guarantor. Does the consent match the physician's order: Yes. Accurate & Complete Informed Consent: Yes. Inpatient/Outpatient History & Physical on Chart: Yes. If H&P is completed, is and addenduem needed: Yes; If yes, is the addendum complete: Yes. Visualize and Verify Site with Patient/Guarantor: N/A. Relevant Radiology Images available: Yes. Pre-op teaching completed and patient verbalized understanding. The risks, benefits, and alternatives of sedation and/or procedure were discussed by physician. The patient agrees to continue. Procedure started. 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 Chest Pain Symptom Assessment: Atypical Angina. Cardiovascular Instability: No. Correct patient, site and procedure confirmed by cath team. Current diagnosis: Chest Pain. PERRLA. Strong, equal hand rn cvicu bilaterally. Lungs clear x 5 lobes. IV Site on Arrival: 20 gauge in the left anticubital. IV Fluids: 0.9% NaCl at KVO. 0 mL infused prior to powerhouse laborer. Pre Procedural Pulses: bilateral posterior tibial was Doppled. Pre Procedural Pulses: bilateral posterior tibial was Doppled. Pre Procedural Pulses: bilateral radial was 2+. Oxygen started at 3liters/min via nasal canula. right groin was prepped with chloroprep then draped in the usual sterile fashion. right radial was prepped with chloroprep then draped in the usual sterile fashion. Physician notified. Baseline sample Acquired. HR: 89 BPM. Baseline sample Acquired. HR: 88 BPM. Baseline sample Acquired. HR: 93 BPM. Physician arrived. Physician scrubbed in. Family updated by MD prior to the start of the procedure. Immediate Pre-Procedure Time Out. Correct Patient: Yes; Correct Procedure: Yes; Correct Site: Yes; Correct Patient Position: Yes; Correct Supplies: Yes; Dried Flammable Prep: Yes; Blood Products Available: N/A;. Lidocaine 1% infiltrated to the right radial. Arterial access obtained. A 5 danish Kyler catheter in over wire. Multiple views taken of right coronary artery. Catheter redirected to the LCA. Catheter removed over the exchange wire. A 5 danish JL4 catheter in over wire. Multiple views taken of left coronary artery. Catheter removed over the exchange wire. 6 danish XB 3.5 guide catheter was inserted over the wire. ACT drawn. Results 252 seconds. Therapeutic limits - pre-heparin administration 90-150 seconds and monitoring heparin during a vascular procedure >250 seconds. Unable to seat Guide seated in the LCS. Guide catheter out. 6 danish XB 3 guide catheter was inserted over the wire. Guide seated in the LCS. Runthrough guidewire was advanced through the guide catheter to lesion in the prox LAD. Guidewire advanced across lesion. Inflation number : 1 A AB TREK 3.00X12 RX BALLOON was prepped and advanced across the Prox LAD , then inflated to 12 IVY for 0:11 seconds. Inflation number: 2 The AB TREK 3.00X12 RX BALLOON was reinflated across the Prox LAD, to 14 IVY for 0:10 seconds. Inflation number: 3 The AB TREK 3.00X12 RX BALLOON was reinflated across the Prox LAD, to 14 IVY for 0:09 seconds. Balloon out. Results checked. Inflation Number : 4 A MUKUL Stein ROBERT 4.0X12 RONEY -Lot Number# [id number] EXP 05/06/27 was prepped and advanced across the Prox LAD. The stent was deployed at 12 IVY for 0:10 seconds. Stent balloon out over wire. Results checked. Stent removed intact. Guideliner inserted. 4.5 x 8NC balloon inserted. No cross. Removed intact. Inflation number : 5 A AB TREK 4.50X12 RX BALLOON was prepped and advanced across the Prox LAD , then inflated to 12 IVY for 0:12 seconds. Balloon out. Results checked. Inflation number : 6 A AB TREK 3.00X08 RX BALLOON was prepped and advanced across the Prox LAD , then inflated to 8 IVY for 0:10 seconds. Inflation number: 7 The AB TREK 3.00X08 RX BALLOON was reinflated across the Prox LAD, to 8 IVY for 0:08 seconds. Inflation number: 8 The AB TREK 3.00X08 RX BALLOON was reinflated across the Prox LAD, to 12 IVY for 0:11 seconds. Balloon out. Results checked. Inflation Number : 9 A MDT R ROBERT 4.0X12 RONEY -Lot Number# [id number] EXP 05/06/27 was prepped and advanced across the Prox LAD. The stent was deployed at 12 IVY for 0:18 seconds. Results checked. Stent balloon out over wire. Inflation number : 10 A MDT NC EUPHORA RX 4.13Y89NL BALLOON was prepped and advanced across the Prox LAD , then inflated to 12 IVY for 0:11 seconds. Inflation number: 11 The MDT NC EUPHORA RX 4.35S96XH BALLOON was reinflated across the Prox LAD, to 12 IVY for 0:11 seconds. Inflation number: 12 The MDT NC EUPHORA RX 4.52X15AO BALLOON was reinflated across the Prox LAD, to 12 IVY for 0:11 seconds. Balloon out. Results checked. Guideliner out. Wire out. Physician review of films. ACT drawn. Results 267 seconds. Therapeutic limits - pre-heparin administration 90-150 seconds and monitoring heparin during a vascular procedure >250 seconds. Guide catheter out. Contrast type used: Visipaque 320 mgI/mL, 500 mL bottle. [id number]. Physician scrubbed out. A TR Band was successful obtaining hemostatsis at the Right Radial artery insertion site. TR band placed. Hemostasis obtained. Post Procedure: Pulses reassessed and unchanged. PERRLA. Strong, equal hand rn cvicu bilaterally. No VTE prophylaxis required. Post-op diagnosis: Significal proximal lad treated with overlapping drug eluting stentx 2. Total IV fluids: 140 mL. Medication's Wasted: Lidocaine 1% = 18 ml, Nitro = 49.8 mg , Heparin = 3000 units. Fluoro: 24:01. Complications: None. Estimated blood loss: 5mL-10mL. Responsiveness - Normal response to verbal stimuli; alert and oriented, PERRLA. Airway - Unaffected, no intervention required; spontaneous ventilation. Circulation: W/N/L, pulses unchanged. Nausea/Vomiting: No. Procedure completed. Patient transferred by wheelchair to 1st floor. Vital chart was stopped. Access Site Site: Right Radial artery Sheath Size: 6 Fr Hemostasis Method: TR Band Hemostasis Success: Successful Procedure Medications Start: 11:30 AM Stop: 11:30 AM Medication: Versed 1 mg and Fentanyl 25 mcg Amount: 1 Route: I.V. Start: 11:36 AM Stop: 11:36 AM Medication: Nitrogylcerin Amount: 200 mcg Route: I.A. Start: 11:38 AM Stop: 11:38 AM Medication: Heparin Amount: 5000 units Route: I.V. Start: 11:52 AM Stop: 11:52 AM Medication: Heparin Amount: 3000 units Route: I.V. Start: 12:03 PM Stop: 12:03 PM Medication: Versed 1 mg and Fentanyl 25 mcg Amount: 1 Route: I.V. Start: 12:27 PM Stop: 12:27 PM Medication: Fentanyl Amount: 25 mcg Route: I.V. Start: 12:32 PM Stop: 12:32 PM Medication: Fentanyl Amount: 25 mcg Route: I.V. Start: 12:34 PM Stop: 12:34 PM Medication: Plavix Amount: 600 mg Route: P.O. I, the attending physician, have reviewed and verified all procedure medications. Yes, all medications given per verbal order History/Risk Factors Hypertension: Yes Dyslipidemia: Yes Peripheral Arterial Disease (PAD): Yes Myocardial Infarction (MS): Yes Obesity: No Renal Disease: No Tobacco Use: Current/Recent(w/in 1 year) Prior Interventions PCI: No CABG: No Valve Surgery: No Report Signatures Finalized by Ana Reynolds MD on 08/10/2025 07:41 PM
[2025-07-31 10:15] LABS: Anion Gap 14.2 (5-19); Blood Urea Nitrogen 27 mg/dL (8-23); Calcium 9.5 mg/dL (8.5-10.5); Carbon Dioxide 28 mmol/L (22-29); Chloride 104 mmol/L (98-107); Creatinine Clr Calc Pharmacy 63.4997; Glucose 158 mg/dL (65-115); Osmolality Calculated 302 mOsm/kg (285-295); Potassium 4.2 mmol/L (3.5-5.1); Sodium 142 mmol/L (136-145)
--- NOTE | 2025-07-31 11:28 | W.PM.OPSFHP ---
Same Day Surgery H&P Indication for Procedure/HPI DATE OF PROCEDURE: July 31, 2025 CHIEF COMPLAINT/INDICATIONFOR SURGICAL PROCEDURE: Worsening of shortness of breath angina: Preaortic valve surgical clearance assessment PREOP DIAGNOSIS: Preaortic valve surgery assessment PLANNED PROCEDURE: Operation Date: 07/31/25 10:00 Proposed Procedures p Cardiac Catheterization - [facility] w/wo LV & Coros(Left) - Ana Reynolds MD Medications/Allergies* Home Medications ?Medication ?Instructions ?Recorded ?Confirmed ?Type clopidogrel 75 mg tablet 75 mg PO QDAY 12/09/19 07/30/25 History esomeprazole magnesium 20 mg 20 mg PO QDAY 12/09/19 07/30/25 History capsule,delayed release (Nexium 24HR) metoprolol tartrate 25 mg tablet 25 mg PO DAILY 12/09/19 07/30/25 History nitroglycerin 0.4 mg sublingual 0.4 mg sublingual Q5M PRN Chest 12/09/19 07/30/25 History tablet (Nitrostat) Pain rosuvastatin 10 mg tablet (Crestor) 10 mg PO QDAY 12/09/19 07/30/25 History metformin 500 mg tablet,extended 500 mg PO QPM 03/29/24 07/30/25 History release 24 hr Allergies/Adverse Reactions Allergy/AdvReac Type Severity Reaction Status Date / Time diphenhydramine (From Allergy ALGY-Difficulty Verified 07/31/25 09:54 Benadryl) Breathing hydrocodone (From [place]) Allergy UNKNOWN Verified 12/12/24 14:54 Current Medications: Generic Name Dose Route Start Last Admin Trade Name Freq PRN Reason Stop Dose Admin Sodium Chloride 1,000 mls @ 100 mls/hr 07/31/25 09:00 07/31/25 09:23 Sodium Chloride 0.9% IV 07/31/25 18:59 Not Given .Q10H ONE Pertinent History/Comorbid Conditions* Medical History (Updated 07/15/25 @ 10:32 by Lorri Diallo) Coronary artery disease Patient had a cardiac authorization in May 2016. 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 The major arteries were found to have only mild diffuse irregularities. The LVEDP was 27 mmHg. Ejection fraction was 65%. Community acquired pneumonia COPD exacerbation Acute respiratory failure with hypoxia Nicotine addiction Hypertensive urgency Acute exacerbation of CHF (congestive heart failure) ALISIA (acute kidney injury) Acute exacerbation of chronic obstructive airways disease Pneumonia Dyslipidemia (high LDL; low HDL) Leg swelling Tobacco dependence Non-ST elevation (NSTEMI) myocardial infarction COPD (chronic obstructive pulmonary disease) GERD (gastroesophageal reflux disease) Essential hypertension Bradycardia ASHD (arteriosclerotic heart disease) Sleep apnea Heart murmur History of left heart catheterization Surgical History (Updated 12/09/19 @ 12:46 by Luis Carlisle MD) Hx of repair of left rotator cuff Hx of knee surgery Hx of neck surgery Family History (Updated 12/09/19 @ 11:34 by Isis Scales RN) Diabetes Sister Grandfather CAD (coronary artery disease) Brother Cancer Father Hypertension Father Mother Sister Brother Social History Smoking and tobacco/nicotine status: current every day tobacco/nicotine user ( 1 PPD) Alcohol intake: never Substance/Drug Use: never Marital status: Current occupational status: employed Pertinent Exam Findings alert, oriented x 3, clear to auscultation bilaterally, regular rate & rhythm and operative site marked Conscious Sedation Assessment PATIENT ASSESSED PRIOR TO SEDATION, WITH NO CHANGE NOTED: Yes AIRWAY EVAL/ANESTHESIA PLAN: normal airway, see other exam findings, ASA II, Risks, benefits & alternatives of sedation and/or procedure discussed and Patient agrees to continue as planned ADDITIONAL INFORMATION: All risk-benefit and alternative for the procedure has been explained to the patient. Patient understand 2% risk of stroke major bleed. Patient understand 5% risk of minor bleeding oozing infection hematoma contrast-induced nephropathy pseudoaneurysm urgent or emergent vascular bypass surgery. Patient understood it and would like to proceed with that. Recommendations Other Coding Level of Care Code Acute Code for Chg Fwd
--- NOTE | 2025-07-31 12:39 | PM.PROC ---
Procedure Note: Date of procedure: 07/31/25 Pre-procedure diagnosis: Unexplained shortness of breath angina: Preop for aortic valve replacement Procedure: Coronary angiogram was performed Left main is normal Left circumflex luminal irregularity without significant stenosis LAD has ostial and proximal significant 80% eccentric stenosis it is the culprit vessel RCA has anterior takeoff with luminal irregularity without significant stenosis PCI to ostial and proximal LAD with 2 overlapping drug-eluting stent 4.0 x 8 and 4.0 x 12 mm. Both stents were postdilated 4.5 x 8 mm noncompliant balloon. Excellent angiographic result SUSSY-3 flow was confirmed at the end of the case. No complications. Patient has chronic kidney disease because of baseline creatinine 1.5 and because the fact patient has received high contrast LV gram was deferred. 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 CBC BMP in the morning Full note to be dictated Coding Level of Care Code Acute Code for Chg [place]
--- NOTE | 2025-07-31 18:48 | PC.NURSE ---
see vitals charted for post cardiac cath vitals.
[2025-08-01 04:00] VITALS: BP 123/86; PULSE 95; RESP 19; TEMP 36.8; O2SAT 94
[2025-08-01 04:49] LABS: Hematocrit 49.4 % (37-53); Hemoglobin 15.50 g/dL (11.27-16.99); Mean Corpuscular HGB Conc 31.4 g/dL (30-55); Mean Corpuscular Hemoglobin 29.0 pg (27-33); Mean Corpuscular Volume 92.3 fl (82-101); Nucleated Red Blood Cells % 0 %; Platelet Count 176 10^3/cmm (157-399); Red Blood Count 5.35 10^6/uL (3.85-5.65); White Blood Count 9.01 10^3/uL (3.29-11.43)
[2025-08-01 05:09] LABS: Anion Gap 15.2 (5-19); Blood Urea Nitrogen 20 mg/dL (8-23); Calcium 9.1 mg/dL (8.5-10.5); Carbon Dioxide 26 mmol/L (22-29); Chloride 100 mmol/L (98-107); Creatinine Clr Calc Pharmacy 63.4997; Glucose 130 mg/dL (65-115); Osmolality Calculated 288 mOsm/kg (285-295); Potassium 4.2 mmol/L (3.5-5.1); Sodium 137 mmol/L (136-145)
[2025-08-01 07:36] VITALS: BP 121/80; PULSE 98; RESP 14; TEMP 36.4
--- NOTE | 2025-08-01 08:50 | PM.PN ---
Vitals/I&O/Wt Last Vital Signs Temp 97.6 F 08/01/25 07:36 Pulse 98 08/01/25 07:36 Resp 14 08/01/25 07:36 BP 121/80 08/01/25 07:36 Pulse Ox 94 08/01/25 04:00 O2 Del Method Nasal Cannula 08/01/25 04:00 O2 Flow Rate 4 08/01/25 04:00 07/31/25 08/01/25 08/01/25 22:59 06:59 14:59 Intake Total 450 / 450 Output Total 1000 / 1875 875 / 1875 Balance -550 / -1425 -875 / -1425 Weight last 48 hrs Weight 267 lb Data 08/01/25 04:43 08/01/25 04:43 A&P PDMP PDMP Reviewed: Not Reviewed Coding Level of Care Code Acute Code for Chg Fwd
--- NOTE | 2025-08-01 09:24 | P.DS_ITS ---
<Statement entered by Ana Reynolds MD - 08/01/25 19:59> Patient was evaluated and cared for in conjunction with an advanced practice practitioner. I personally examined the patient and reviewed the chart and all pertinent data including imaging, telemetry, and laboratory results. I discussed the patient in detail with the advanced practice practitioner. Please see their note for complete H&P testing result and agreed upon plan of care for the patient. Discharge Providers Date of Admission: 07/31/2025 Date of Discharge: August 01, 2025 Attending Provider at Discharge: Ana Reynolds MD Primary Care Provider: Kristan Martin NP Reason for Visit Reason for Visit: Z01.818 Brief History: Jose Adair is a 65-year-old male with past medical history of CAD, right bundle branch block, PAD, aortic valve stenosis. He had a reduction in valve area from 1.7 cm? to 1.1 cm? over the last year with mean gradient 18 mmHg indicating moderate to severe aortic stenosis. Coronary angiogram was recommended for further evaluation prior to referral for possible TAVR. Hospital Course Hospital Course He underwent coronary angiogram yesterday revealing normal left main, no significant stenosis in the left circumflex or RCA. Ostial and proximal LAD contained significant eccentric stenosis and was treated with RONEY x 2 overlapping. He did not have any complications overnight, right radial cath site looks good without hematoma. Creatinine 1.4 this morning after postprocedure hydration. He will be discharged home today continuing aspirin and Plavix, follow-up in the cardiology clinic in 2 weeks to discuss management of the aortic valve. Physical Exam Const: COMMON NORMALS: no acute distress and patient oriented x3 GENERAL APPEARANCE: cooperative ORIENTATION/CONSCIOUSNESS: Yes awake, Yes oriented to person, Yes oriented to place and Yes oriented to time Chest: COMMONS NORMALS: normal inspection of the chest and normal palpation of entire chest wall CHEST: Yes Symmetrical chest wall rise Resp: COMMON NORMALS: normal respiratory effort, No retractions, No use of accessory muscles and clear to auscultation bilaterally AUSCULTATION: clear to auscultation bilaterally Cardio: COMMON NORMALS: regular rate, regular rhythm, S1 normal heart sound present, S2 normal heart sound present, No gallops present (Cardio), No clicks present (Cardio), No murmurs present (Cardio) and No rub (Cardio) RATE: regular rate RHYTHM: regular rhythm HEART SOUNDS: S1 normal heart sound present and S2 normal heart sound present PERIPHERAL PULSES: radial pulses present positive right 2+ and femoral pulses present positive right 2+ Neuro: COMMON NORMALS: patient oriented x3 and moves all extremities SENSORIUM/ORIENTATION: Yes oriented to person, Yes oriented to place and Yes oriented to time Skin: WOUNDS: Yes surgical site (no hematoma palpable) Details: no odor Discharge Data Studies Completed and Pending Pending at discharge Category Date Time Status [place] request for service Routine Exams 07/31/25 09:00 Taken Laboratory Results WBC 9.01 10^3/uL (3.29-11.43) 08/01/25 04:43 RBC 5.35 10^6/uL (3.85-5.65) 08/01/25 04:43 Hgb 15.50 g/dL (11.27-16.99) 08/01/25 04:43 Hct 49.4 % (37-53) 08/01/25 04:43 MCV 92.3 fl (82-101) 08/01/25 04:43 MCH 29.0 pg (27-33) 08/01/25 04:43 MCHC 31.4 g/dL (30-55) 08/01/25 04:43 RDW 15.1 % (12.1-15.1) 08/01/25 04:43 Plt Count 176 10^3/cmm (157-399) 08/01/25 04:43 MPV 9.4 fL (7.4-10.4) 08/01/25 04:43 Neut % (Auto) 64.3 % 08/01/25 04:43 Lymph % (Auto) 24.2 % 08/01/25 04:43 Tal[place]ferro % (Auto) 8.8 % 08/01/25 04:43 Eos % (Auto) 2.0 % 08/01/25 04:43 Baso % (Auto) 0.3 % 08/01/25 04:43 Neut # (Auto) 5.79 10^3/uL (1.8-7.7) 08/01/25 04:43 Lymph # (Auto) 2.2 10^3/uL (0.8-4.8) 08/01/25 04:43 Tal[place]ferro # (Auto) 0.8 10^3/uL (0.2-0.9) 08/01/25 04:43 Eos # (Auto) 0.2 10^3/uL (0.0-0.8) 08/01/25 04:43 Baso # (Auto) 0.0 10^3/uL (0.0-0.1) 08/01/25 04:43 Nucleated RBC % (auto) 0 % 08/01/25 04:43 Nucleated RBCs # 0.0 /100WBC 08/01/25 04:43 Sodium 137 mmol/L (136-145) 08/01/25 04:43 Potassium 4.2 mmol/L (3.5-5.1) 08/01/25 04:43 Chloride 100 mmol/L (98-107) 08/01/25 04:43 Carbon Dioxide 26 mmol/L (22-29) 08/01/25 04:43 Anion Gap 15.2 (5-19) 08/01/25 04:43 BUN 20 mg/dL (8-23) 08/01/25 04:43 Creatinine 1.4 mg/dL (0.7-1.2) H 08/01/25 04:43 GFR Calculation 50.9 mL/min (90-130) L 08/01/25 04:43 Glucose 130 mg/dL (65-115) H 08/01/25 04:43 Calculated Osmolality 288 mOsm/kg (285-295) 08/01/25 04:43 Calcium 9.1 mg/dL (8.5-10.5) 08/01/25 04:43 Vitals Last Vital Signs Temp 97.6 F 08/01/25 07:36 Pulse 98 08/01/25 07:36 Resp 14 08/01/25 07:36 BP 121/80 08/01/25 07:36 Pulse Ox 94 08/01/25 04:00 O2 Del Method Nasal Cannula 08/01/25 04:00 O2 Flow Rate 4 08/01/25 04:00 Discharge Plan Discharge Patient Disposition: Home Prescriptions: New aspirin 81 mg Tablet,Delayed Release (Dr/Ec) 81 mg PO DAILY Qty: 30 0RF Continued rosuvastatin [Crestor] 10 mg tablet 10 mg PO QDAY esomeprazole magnesium [Nexium 24HR] 20 mg capsule,delayed release(DR/EC) 20 mg PO QDAY clopidogrel 75 mg tablet 75 mg PO QDAY nitroglycerin [Nitrostat] 0.4 mg tablet, sublingual 0.4 mg SUBLINGUAL Q5M PRN (Reason: Chest Pain) metoprolol tartrate 25 mg tablet 25 mg PO DAILY furosemide [Lasix] 40 mg tablet 40 mg PO DAILY PRN (Reason: edema) Qty: 90 2RF potassium chloride 20 mEq tablet extended release 10 meq PO DAILY Qty: 90 2RF albuterol sulfate [Proventil HFA] 90 mcg/actuation HFA aerosol inhaler 1 inh inhalation Q6H PRN (Reason: shortness of breath or wheezing) Qty: 6.7 2RF metformin 500 mg tablet extended release 24 hr 500 mg PO QPM ipratropium-albuterol 0.5 mg-3 mg(2.5 mg base)/3 mL solution for nebulization 3 ml INHALATION QID Qty: 180 0RF Discharge Order = DC NOW: Discharge Order (Routine); Ordered 08/01/25 Ordered By: Ofelia Rodriguez Referrals: Kristan Martin NP [Primary Care Provider, Unknown] - 08/07/25 9:30 am Aan Reynolds MD [Physician, Cardiology] - 08/13/25 2:30 pm Diet: Cardiac Activity: Increase activity as tolerated and Cpap/Bipap as instructed Patient Instructions: Aspirin (By mouth), Coronary Artery Disease (DC), Coronary Angioplasty (DC), Chest Pain Stoplight, Post Angiogram Home Care Instructions Activity Restrictions/Additional Instructions: No lifting over 5 pounds with right arm for 4 days. Print Language: Chinese Discharge Date/Time: 08/01/25 11:42 Discharge Attestations Time Spent in Discharge Care*: less than 30 min Quality Metrics Clinical Quality Measures [ No reported AMI, CVA or VTE this stay] Coding Level of Care Code Acute Code for Chg Fwd
--- NOTE | 2025-08-01 10:49 | PC.SOCIAL ---
*Manager Plant Note* set up [facility] [employer] for Patient. Trip Number [phone].
--- NOTE | 2025-08-01 11:38 | PC.NURSE ---
discharge instructions given and explained.pt verb understanding of instructions.discharged via w/c to exit at this time
[2025-08-01 11:39] VITALS: BP 112/75; PULSE 93; RESP 18; O2SAT 94
== END 2025-08-01 11:42 | disposition home or self-care (01) ==
LOC: CCL 08:34 → CSU 12:56
PROVIDERS: PCP Nurse Practitioner Family; Visit Provider Internal Medicine Cardiovascular Disease
DX: I25.118 Atherosclerotic heart disease of native coronary artery with other forms of angina pectoris (principal); E78.5 Hyperlipidemia, unspecified; I25.2 Old myocardial infarction; I73.9 Peripheral vascular disease, unspecified; J44.1 Chronic obstructive pulmonary disease with (acute) exacerbation; I11.0 Hypertensive heart disease with heart failure; I50.9 Heart failure, unspecified; N17.9 Acute kidney failure, unspecified; K21.9 Gastro-esophageal reflux disease without esophagitis; G47.30 Sleep apnea, unspecified; R01.1 Cardiac murmur, unspecified; Z82.49 Family history of ischemic heart disease and other diseases of the circulatory system; F17.200 Nicotine dependence, unspecified, uncomplicated; I45.10 Unspecified right bundle-branch block; Z79.84 Long term (current) use of oral hypoglycemic drugs
CPT/HCPCS: 36415; 80048; 85025; 85347; 93454; 96360; 99152; 99153; C1725; C1769; C1874; C1887; C1894; C9600; J1644; J2250; J3010; J3490; J7030; J9999; Q9967